=== PATIENT | female | born 1930 | race Caucasian/White ===

== ENCOUNTER 2016-12-14 09:19 | Inpatient (IN) | payer OTHER, MEDICAID ==
[~2016-12-14] VITALS: Ht 142.2 cm; Wt 48.1 kg
[~2016-12-14 09:19] MED LIST: ADV500/50 INH; BG MC; COLACE100 MG PO; DOC-Q-LACE100 MG PO; ECO81 PO; FLONS; HUMULIN R100 U/1 M1 SC; I5 PO; L20 PO; METOPROLOL SUCC25 M1 PO; MEV20 PO; MONTELUKAST SOD10 M1 PO; MOT400 PO; MYCLUD PO; NITROSTAT0.4 MG SL; NORCO1 TA2 PO; PRI20 PO; PRO40 PO; PROINH INH; PROTONIX40 MG PO; ROC1I IV; SING10 PO; SINGULAIR10 MG PO; TOP50 PO; VITAMIN-D1000 IU PO; XARELTO15 M1 PO; ZES20 PO; ZOC20 PO; ZYR5 PO; [UNRECOGNIZED DRUG - OTHER]
[2016-12-14 10:55] LABS: BASOPHIL % 0.6 % (0-2); PLATELET COUNT 189 x10^3mcL (130-400); RED CELL DISTRIBUTION WIDTH 14.8 % (11.5-14.5)
[2016-12-14 11:05] LABS: CALCIUM 8.8 mg/dL (8.5-10.1); CARBON DIOXIDE 25.5 mmol/L (21-32); CHLORIDE SERUM 103 mmol/L (98-107); GLUCOSE SERUM 97 mg/dL (74-106); POTASSIUM SERUM 4.1 mmol/L (3.5-5.1); SODIUM SERUM 140 mmol/L (136-145)
[2016-12-14 11:18] LABS: ALBUMIN 3.6 g/dL (3.4-5.0); ALKALINE PHOSPHATASE 83 U/L (46-116); ALT/SGPT 17 U/L (14-59); AST/SGOT 17 U/L (15-37); BILIRUBIN TOTAL 0.4 mg/dL (0.20-1.00); TOTAL PROTEIN, SERUM 6.7 g/dL (6.4-8.2)
[2016-12-14] MEDS ORDERED: DOK COLACE100 MG PO (11:24)
[2016-12-14] MEDS ORDERED: PROAIR RES117 MCG/Ac IH (11:24)
[2016-12-14] MEDS ORDERED: ASPIRIN325 MG PO (11:25)
[2016-12-14] MEDS ORDERED: POTASSIUM CHLO10 MEQ PO (11:25)
[2016-12-14] MEDS ORDERED: CALCIUM500 M1 PO (11:27)
[2016-12-14] MEDS ORDERED: MONTELUKAST SOD10 M1 PO (11:27)
[2016-12-14] MEDS ORDERED: LEADER MELATONIN5 MG PO (11:27)
[2016-12-14] MEDS ORDERED: FUROSEMIDE20 MG PO (11:33)
[2016-12-14] MEDS ORDERED: TYLENOL325 M1 PO (11:33)
[2016-12-14] MEDS ORDERED: GABAPENTIN100 M2 PO (11:34)
[2016-12-14 11:35] LABS: UA SPECIFIC GRAVITY 1.015 (1.005-1.035); microscopic required? YES; urine erythrocyte NEGATIVE (NEGATIVE)
[2016-12-14] MEDS ORDERED: IBUPROFEN200 M2 PO (11:40)
[2016-12-14 13:33] VITALS: BP 167/64
[2016-12-14 13:57] LABS: CHOLESTEROL/HDL RATIO 3.3; MAGNESIUM 2.6 mg/dL (1.8-2.4); PHOSPHOROUS 2.5 mg/dL (2.5-4.9)
[2016-12-14 14:04] LABS: FREE T4 1.48 ng/dL (0.76-1.46); FREE THYROXINE INDEX 3.1 ug/dL (1.4-4.5)
[2016-12-14 18:05] VITALS: BP 167/64
[2016-12-14 22:00] VITALS: BP 118/59
[2016-12-15 06:21] LABS: BASOPHIL % 0.7 % (0-2); PLATELET COUNT 163 x10^3mcL (130-400)
[2016-12-15 06:30] LABS: CALCIUM 8.2 mg/dL (8.5-10.1); CARBON DIOXIDE 24.8 mmol/L (21-32); CHLORIDE SERUM 111 mmol/L (98-107); CREATININE SERUM 0.9 mg/dL (0.6-1.0); GLUCOSE SERUM 83 mg/dL (74-106); POTASSIUM SERUM 4.4 mmol/L (3.5-5.1); SODIUM SERUM 142 mmol/L (136-145)
[2016-12-15 06:48] VITALS: BP 165/61
[2016-12-15 06:50] LABS: RED CELL DISTRIBUTION WIDTH 15.1 % (11.5-14.5)
[2016-12-15 09:47] VITALS: BP 165/63
[2016-12-15 09:48] LABS: MAGNESIUM 2.4 mg/dL (1.8-2.4); PHOSPHOROUS 3.6 mg/dL (2.5-4.9)
[2016-12-15 11:55] LABS: T3 TOTAL 0.77 ng/mL
[2016-12-15 13:51] VITALS: BP 142/65
[2016-12-15 17:13] VITALS: BP 126/45
[2016-12-15 21:41] VITALS: BP 134/53
[2016-12-16 06:17] VITALS: BP 165/52
[2016-12-16 06:37] LABS: CALCIUM 8.4 mg/dL (8.5-10.1); CARBON DIOXIDE 26.5 mmol/L (21-32); CHLORIDE SERUM 103 mmol/L (98-107); CREATININE SERUM 0.8 mg/dL (0.6-1.0); GLUCOSE SERUM 95 mg/dL (74-106); MAGNESIUM 2.4 mg/dL (1.8-2.4); PHOSPHOROUS 3.2 mg/dL (2.5-4.9); SODIUM SERUM 139 mmol/L (136-145)
[2016-12-16 06:39] LABS: BASOPHIL % 0.3 % (0-2); PLATELET COUNT 157 x10^3mcL (130-400)
[2016-12-16 06:49] LABS: RED CELL DISTRIBUTION WIDTH 15.5 % (11.5-14.5)
[2016-12-16 09:26] VITALS: BP 129/44
[2016-12-16 12:41] VITALS: BP 144/58
[2016-12-16 17:09] VITALS: BP 173/54
[2016-12-16 17:16] VITALS: BP 141/59
[2016-12-16 21:01] VITALS: BP 145/49
[2016-12-17 05:16] VITALS: BP 116/65
[2016-12-17 06:58] LABS: BASOPHIL % 0.4 % (0-2); PLATELET COUNT 156 x10^3mcL (130-400); RED CELL DISTRIBUTION WIDTH 14.9 % (11.5-14.5)
[2016-12-17 09:25] VITALS: BP 176/63
[2016-12-17 12:30] VITALS: BP 176/63
[2016-12-17 13:25] VITALS: BP 125/53
[2016-12-17] MEDS ORDERED: MOT800 PO (17:02)
[2016-12-17 17:51] VITALS: BP 144/56
[2016-12-17 18:37] VITALS: BP 144/56
== END 2016-12-17 20:45 | disposition home or self-care (01) | DRG 689 ==
LOC: ED 09:19 → DU 12:24
PROVIDERS: Emergency Medicine; ADMIT Family Medicine
DX: N39.0 Urinary tract infection, site not specified (principal); N17.0 Acute kidney failure with tubular necrosis; I50.43 Acute on chronic combined systolic (congestive) and diastolic (congestive) heart failure; D68.69 Other thrombophilia; M80.08XA Age-related osteoporosis with current pathological fracture, vertebra(e), initial encounter for fracture; I11.0 Hypertensive heart disease with heart failure; E11.59 Type 2 diabetes mellitus with other circulatory complications; E11.51 Type 2 diabetes mellitus with diabetic peripheral angiopathy without gangrene; E11.42 Type 2 diabetes mellitus with diabetic polyneuropathy; E11.65 Type 2 diabetes mellitus with hyperglycemia; E78.5 Hyperlipidemia, unspecified; K21.9 Gastro-esophageal reflux disease without esophagitis; E83.41 Hypermagnesemia; E83.51 Hypocalcemia; J45.909 Unspecified asthma, uncomplicated; Z66 Do not resuscitate; Z93.3 Colostomy status; Z79.82 Long term (current) use of aspirin; Z85.030 Personal history of malignant carcinoid tumor of large intestine
CPT/HCPCS: 36600; 82962; 83880; 84439; 97110-GP; 97116-GP; 97530-GP; J0696; J1885; J2405; J3010; J3475; J7030; J7040; J7042; Q0092

== ENCOUNTER 2017-02-08 11:35 | Inpatient (IN) | payer OTHER, MEDICAID ==
[~2017-02-08] VITALS: Ht 154.9 cm; Wt 52.2 kg
[~2017-02-08 11:35] MED LIST changes: +ASPIRIN325 MG PO; +CALCIUM500 M1 PO; +DOK COLACE100 MG PO; +FUROSEMIDE20 MG PO; +GABAPENTIN100 M2 PO; +IBUPROFEN200 M2 PO; +LEADER MELATONIN5 MG PO; +MOT800 PO; +POTASSIUM CHLO10 MEQ PO; +PROAIR RES117 MCG/Ac IH; +TYLENOL325 M1 PO
[2017-02-08 12:32] LABS: BASOPHIL % 0.6 % (0-2); PLATELET COUNT 193 x10^3mcL (130-400)
[2017-02-08 12:34] LABS: RED CELL DISTRIBUTION WIDTH 15.5 % (11.5-14.5)
[2017-02-08 12:56] LABS: ALBUMIN 3.5 g/dL (3.4-5.0); ALKALINE PHOSPHATASE 83 U/L (46-116); ALT/SGPT 19 U/L (14-59); AST/SGOT 18 U/L (15-37); BILIRUBIN TOTAL 0.3 mg/dL (0.20-1.00); CALCIUM 8.7 mg/dL (8.5-10.1); CARBON DIOXIDE 27.1 mmol/L (21-32); CHLORIDE SERUM 107 mmol/L (98-107); CREATININE SERUM 0.9 mg/dL (0.6-1.0); GLUCOSE SERUM 134 mg/dL (74-106); POTASSIUM SERUM 3.7 mmol/L (3.5-5.1); SODIUM SERUM 141 mmol/L (136-145); TOTAL PROTEIN, SERUM 6.9 g/dL (6.4-8.2)
[2017-02-08] MEDS ORDERED: VITAMIN-D1000 IU PO (14:39)
[2017-02-08] MEDS ORDERED: POTASSIUM CHLO20 ME1 PO (14:42)
[2017-02-08 14:47] LABS: MAGNESIUM 2.1 mg/dL (1.8-2.4); PHOSPHOROUS 2.2 mg/dL (2.5-4.9)
[2017-02-08 14:48] LABS: UA SPECIFIC GRAVITY 1.015 (1.005-1.035); microscopic required? YES; urine erythrocyte 1+ (NEGATIVE)
[2017-02-08 14:57] LABS: FREE T4 1.16 ng/dL (0.76-1.46); T4(THYROXINE) 7.8 ug/dL (4.7-13.3)
[2017-02-08 15:05] LABS: T3 TOTAL 0.86 ng/mL
[2017-02-08 15:34] VITALS: BP 139/61
[2017-02-08 15:39] VITALS: BP 139/61
[2017-02-08 21:59] VITALS: BP 116/45
[2017-02-09 00:47] VITALS: BP 115/45
[2017-02-09 06:21] VITALS: BP 112/52
[2017-02-09 06:47] LABS: CALCIUM 8.4 mg/dL (8.5-10.1); CHLORIDE SERUM 106 mmol/L (98-107); CREATININE SERUM 0.9 mg/dL (0.6-1.0); GLUCOSE SERUM 120 mg/dL (74-106); MAGNESIUM 2.1 mg/dL (1.8-2.4); POTASSIUM SERUM 3.8 mmol/L (3.5-5.1); SODIUM SERUM 139 mmol/L (136-145)
[2017-02-09 07:24] LABS: BASOPHIL % 0.3 % (0-2); PLATELET COUNT 171 x10^3mcL (130-400)
[2017-02-09 07:33] LABS: RED CELL DISTRIBUTION WIDTH 15.9 % (11.5-14.5)
[2017-02-09 08:48] VITALS: BP 117/47
[2017-02-09 12:31] VITALS: BP 143/65
[2017-02-09 16:15] VITALS: BP 116/55
[2017-02-09 21:23] VITALS: BP 140/53
[2017-02-10 06:39] VITALS: BP 107/60
[2017-02-10 09:31] VITALS: BP 102/40
[2017-02-10 14:02] VITALS: BP 114/45
[2017-02-10 18:54] VITALS: BP 134/53
[2017-02-10 21:48] VITALS: BP 118/51
[2017-02-11 05:49] VITALS: BP 154/62
[2017-02-11 06:36] LABS: BASOPHIL % 0.5 % (0-2); PLATELET COUNT 172 x10^3mcL (130-400)
[2017-02-11 06:38] LABS: RED CELL DISTRIBUTION WIDTH 15.8 % (11.5-14.5)
[2017-02-11 10:33] VITALS: BP 123/51
[2017-02-11 13:59] VITALS: BP 116/53
[2017-02-11 17:39] VITALS: BP 121/56
[2017-02-11 20:44] VITALS: BP 106/68
[2017-02-12 05:55] VITALS: BP 120/48
[2017-02-12 06:19] LABS: BASOPHIL % 0.1 % (0-2); PLATELET COUNT 174 x10^3mcL (130-400)
[2017-02-12 06:22] LABS: RED CELL DISTRIBUTION WIDTH 16.2 % (11.5-14.5)
[2017-02-12 09:13] VITALS: BP 124/55
[2017-02-12 13:57] VITALS: BP 129/55
[2017-02-12] MEDS ORDERED: LIPI10 PO (14:20)
[2017-02-12] MEDS ORDERED: ECO81 PO (14:22)
[2017-02-12] MEDS ORDERED: COUGH100 MG/5 M PO (14:23)
[2017-02-12 14:25] VITALS: BP 129/55
[2017-02-12] MEDS ORDERED: LAC PO (14:26)
[2017-02-12] MEDS ORDERED: LEVOFLOXACIN500 M1 PO (14:45)
[2017-02-12] MEDS ORDERED: CLINDAMYCIN HC300 MG PO (14:46)
== END 2017-02-12 17:01 | disposition home health service (06) | DRG 177 ==
LOC: ED 11:35 → DU 13:38
PROVIDERS: Emergency Medicine; ADMIT Family Medicine
DX: J69.0 Pneumonitis due to inhalation of food and vomit (principal); J96.00 Acute respiratory failure, unspecified whether with hypoxia or hypercapnia; N17.0 Acute kidney failure with tubular necrosis; E43 Unspecified severe protein-calorie malnutrition; N39.0 Urinary tract infection, site not specified; D68.69 Other thrombophilia; E86.0 Dehydration; E11.65 Type 2 diabetes mellitus with hyperglycemia; E11.59 Type 2 diabetes mellitus with other circulatory complications; K21.9 Gastro-esophageal reflux disease without esophagitis; E83.39 Other disorders of phosphorus metabolism; D64.9 Anemia, unspecified; Z85.038 Personal history of other malignant neoplasm of large intestine; J84.10 Pulmonary fibrosis, unspecified; Z99.81 Dependence on supplemental oxygen; Z93.3 Colostomy status; Z66 Do not resuscitate
CPT/HCPCS: 82962; 83880; 84439; 92610; 97116-GP; 97530-GP; J0696; J1956; J2405; J2920; J3490; J7030; J7613; J7626; J7644; Q0092

== ENCOUNTER 2018-02-17 22:11 | Inpatient (IN) | payer OTHER ==
[~2018-02-17] VITALS: Ht 149.9 cm; Wt 48.0 kg
[~2018-02-17 22:11] MED LIST changes: +CLINDAMYCIN HC300 MG PO; +COUGH100 MG/5 M PO; +LAC PO; +LEVOFLOXACIN500 M1 PO; +LIPI10 PO; +POTASSIUM CHLO20 ME1 PO
[2018-02-17 22:20] VITALS: Ht 149.9 cm; Wt 48.0 kg
[2018-02-18] VITALS (7 sets, daily range): BP systolic 101–206; BP diastolic 45–70
[2018-02-18] MEDS ORDERED: TRAMADOL HCL50 MG PO (00:24)
[2018-02-18] MEDS ORDERED: SIMVASTATIN20 M1 PO (00:24)
[2018-02-18] MEDS ORDERED: BENAZEPRIL HYDR20 M1 PO (00:26)
[2018-02-18] MEDS ORDERED: NATURE'S BLEND500 M3 PO (00:27)
[2018-02-18] MEDS ORDERED: COLACE100 MG PO (00:27)
[2018-02-18] MEDS ORDERED: VITAMIN-D1000 IU PO (00:28)
[2018-02-18] MEDS ORDERED: PANTOPRAZOLE SO40 M1 PO (00:29)
[2018-02-18 02:34] LABS: UA SPECIFIC GRAVITY <=1.005 (1.005-1.035); microscopic required? YES; urine erythrocyte TRACE (NEGATIVE)
[2018-02-18 06:33] LABS: ALBUMIN 3.5 g/dL (3.4-5.0); ALKALINE PHOSPHATASE 83 U/L (46-116); ALT/SGPT 20 U/L (14-59); AST/SGOT 21 U/L (15-37); BILIRUBIN TOTAL 0.5 mg/dL (0.20-1.00); CALCIUM 9.3 mg/dL (8.5-10.1); CARBON DIOXIDE 26.2 mmol/L (21-32); CHLORIDE SERUM 107 mmol/L (98-107); CREATININE SERUM 0.9 mg/dL (0.6-1.0); GLUCOSE SERUM 119 mg/dL (74-106); SODIUM SERUM 141 mmol/L (136-145); TOTAL PROTEIN, SERUM 6.9 g/dL (6.4-8.2)
[2018-02-18 06:50] LABS: BASOPHIL % 0.5 % (0-2); PLATELET COUNT 202 x10^3mcL (130-400)
[2018-02-19 05:23] VITALS: BP 126/50
[2018-02-19 10:54] VITALS: BP 114/51
[2018-02-19 17:00] VITALS: BP 139/57
[2018-02-19 21:15] VITALS: BP 146/54
[2018-02-20 06:04] VITALS: BP 100/58
[2018-02-20 08:47] VITALS: BP 114/49
[2018-02-20 15:25] VITALS: BP 114/49
[2018-02-20 18:28] VITALS: BP 116/58
[2018-02-20 20:58] VITALS: BP 128/51
[2018-02-21 05:10] VITALS: BP 96/61
[2018-02-21 08:26] VITALS: BP 106/43
[2018-02-21 08:37] VITALS: BP 106/43
[2018-02-21 13:39] VITALS: BP 114/49
[2018-02-21 17:20] VITALS: BP 101/55
== END 2018-02-21 20:20 | disposition home health service (06) | DRG 536 ==
LOC: ED 22:11 → MU 02-18 00:16
PROVIDERS: Internal Medicine
DX: S32.511A Fracture of superior rim of right pubis, initial encounter for closed fracture (principal); S09.90XA Unspecified injury of head, initial encounter; R42 Dizziness and giddiness; I10 Essential (primary) hypertension; E78.5 Hyperlipidemia, unspecified; R73.03 Prediabetes; J84.10 Pulmonary fibrosis, unspecified; J45.909 Unspecified asthma, uncomplicated; Z91.81 History of falling; Z93.3 Colostomy status; W18.39XA Other fall on same level, initial encounter; Y93.89 Activity, other specified; Y92.018 Other place in single-family (private) house as the place of occurrence of the external cause; Z86.718 Personal history of other venous thrombosis and embolism
CPT/HCPCS: 82962; 97116-GP; 97530-GP; J0360; J1885; J3535; Q0092; Q0162

== ENCOUNTER 2018-06-21 15:11 | Observation (INO) | payer OTHER ==
[~2018-06-21] VITALS: Ht 127 cm; Wt 49.5 kg
[~2018-06-21 15:11] MED LIST changes: +BENAZEPRIL HYDR20 M1 PO; +NATURE'S BLEND500 M3 PO; +PANTOPRAZOLE SO40 M1 PO; +SIMVASTATIN20 M1 PO; +TRAMADOL HCL50 MG PO
[2018-06-21 15:48] VITALS: Ht 127 cm; Wt 49.5 kg
[2018-06-21] MEDS ORDERED: SENNA8.6 M2 (16:47)
[2018-06-21] MEDS ORDERED: NORCO1 TA2 PO (16:49)
[2018-06-21] MEDS ORDERED: ASPIRIN325 MG PO (16:49)
[2018-06-21 16:53] LABS: BASOPHIL % 0.8 % (0-2); PLATELET COUNT 202 x10^3mcL (130-400)
[2018-06-21 16:54] LABS: RED CELL DISTRIBUTION WIDTH 15.3 % (11.5-14.5)
[2018-06-21] MEDS ORDERED: CALCIUM500 M1 PO (16:57)
[2018-06-21] MEDS ORDERED: VITAMIN A8000 UNIT PO (16:57)
[2018-06-21 17:01] LABS: CALCIUM 9.2 mg/dL (8.5-10.1); CARBON DIOXIDE 26.6 mmol/L (21-32); CHLORIDE SERUM 105 mmol/L (98-107); CREATININE SERUM 0.9 mg/dL (0.6-1.0); GLUCOSE SERUM 132 mg/dL (74-106); POTASSIUM SERUM 4.1 mmol/L (3.5-5.1); SODIUM SERUM 139 mmol/L (136-145)
[2018-06-21 17:06] LABS: ALKALINE PHOSPHATASE 84 U/L (46-116); ALT/SGPT 13 U/L (14-59); AST/SGOT 14 U/L (15-37); BILIRUBIN TOTAL 0.2 mg/dL (0.20-1.00); TOTAL PROTEIN, SERUM 6.5 g/dL (6.4-8.2)
[2018-06-21 17:08] LABS: ALBUMIN 3.2 g/dL (3.4-5.0)
[2018-06-21 17:32] LABS: UA SPECIFIC GRAVITY <=1.005 (1.005-1.035); microscopic required? YES; urine erythrocyte TRACE (NEGATIVE)
[2018-06-21 20:48] VITALS: BP 180/56
[2018-06-22 05:52] VITALS: BP 126/43
[2018-06-22 07:30] LABS: BASOPHIL % 1.3 % (0-2); PLATELET COUNT 191 x10^3mcL (130-400)
[2018-06-22 07:31] LABS: RED CELL DISTRIBUTION WIDTH 15.1 % (11.5-14.5)
[2018-06-22 07:44] LABS: ALKALINE PHOSPHATASE 76 U/L (46-116); ALT/SGPT 10 U/L (14-59); AST/SGOT 12 U/L (15-37); BILIRUBIN TOTAL 0.2 mg/dL (0.20-1.00); CALCIUM 9.1 mg/dL (8.5-10.1); CARBON DIOXIDE 30.5 mmol/L (21-32); CHLORIDE SERUM 109 mmol/L (98-107); GLUCOSE SERUM 91 mg/dL (74-106); MAGNESIUM 1.9 mg/dL (1.8-2.4); POTASSIUM SERUM 4.6 mmol/L (3.5-5.1); SODIUM SERUM 139 mmol/L (136-145)
[2018-06-22 07:45] LABS: ALBUMIN 2.8 g/dL (3.4-5.0); TOTAL PROTEIN, SERUM 5.9 g/dL (6.4-8.2)
[2018-06-22 09:00] VITALS: BP 101/36
[2018-06-22 17:00] VITALS: BP 148/61
[2018-06-22 20:36] VITALS: BP 122/50
[2018-06-23] VITALS (7 sets, daily range): BP systolic 90–174; BP diastolic 39–77
[2018-06-23] MEDS ORDERED: SOMA350 MG PO (08:36)
== END 2018-06-23 18:40 | disposition home or self-care (01) | DRG 552 ==
LOC: ED 15:11 → MU 18:40
PROVIDERS: Emergency Medicine; Internal Medicine Pulmonary Disease; ADMIT Internal Medicine Pulmonary Disease
DX: M47.896 Other spondylosis, lumbar region (principal); I10 Essential (primary) hypertension; M48.55XD Collapsed vertebra, not elsewhere classified, thoracolumbar region, subsequent encounter for fracture with routine healing; M81.0 Age-related osteoporosis without current pathological fracture; S32.9XXD Fracture of unspecified parts of lumbosacral spine and pelvis, subsequent encounter for fracture with routine healing; J45.909 Unspecified asthma, uncomplicated; K21.9 Gastro-esophageal reflux disease without esophagitis; E78.5 Hyperlipidemia, unspecified; Z93.3 Colostomy status; Z86.718 Personal history of other venous thrombosis and embolism; X58.XXXD Exposure to other specified factors, subsequent encounter
CPT/HCPCS: 97110-GP; G0378; J1644; J1885; J2405; J3010; J7040; J7620; J7633

== ENCOUNTER 2018-08-30 17:58 | Observation (INO) | payer OTHER | END 2018-09-04 16:35 | disposition home or self-care (01) | LOC: ED 17:58 → DU 08-31 00:05 → ED 17:58 → DU 08-31 00:05 → ED 17:58 → DU 08-31 00:05 → ED 17:58 → DU 08-31 00:05 → ED 17:58 → DU 08-31 00:05 ==

== ENCOUNTER 2018-09-13 12:37 | Inpatient (IN) | payer OTHER ==
[~2018-09-13] VITALS: Ht 147.3 cm; Wt 47.3 kg
[~2018-09-13 12:37] MED LIST changes: -GABAPENTIN100 M2 PO; +MULTI-VITAMINS1 TAB PO; +SENNA8.6 M2; +SOMA350 MG PO; +TYL500 PO; +VITAMIN A8000 UNIT PO
[2018-09-13 12:42] VITALS: Ht 147.3 cm; Wt 47.3 kg
--- NOTE | 2018-09-13 13:20 | NUR ---
PT MEDICATED PER MD ORDERS SEE EMAR
[2018-09-13 13:32] LABS: CALCIUM 8.8 mg/dL (8.5-10.1); CARBON DIOXIDE 28.5 mmol/L (21-32); CHLORIDE SERUM 107 mmol/L (98-107); CREATININE SERUM 0.9 mg/dL (0.6-1.0); GLUCOSE SERUM 130 mg/dL (74-106); POTASSIUM SERUM 3.8 mmol/L (3.5-5.1); SODIUM SERUM 141 mmol/L (136-145)
--- NOTE | 2018-09-13 13:33 | NUR ---
BREATHING TX IN PROGRES
[2018-09-13 13:37] LABS: ALKALINE PHOSPHATASE 85 U/L (46-116); ALT/SGPT 21 U/L (14-59); AST/SGOT 21 U/L (15-37); BILIRUBIN TOTAL 0.28 mg/dL (0.20-1.00); TOTAL PROTEIN, SERUM 6.6 g/dL (6.4-8.2)
[2018-09-13 13:38] LABS: ALBUMIN 3.3 g/dL (3.4-5.0)
[2018-09-13 13:39] LABS: BASOPHIL % 0.4 % (0-2); PLATELET COUNT 263 x10^3mcL (130-400)
[2018-09-13 13:48] LABS: RED CELL DISTRIBUTION WIDTH 16.8 % (11.5-14.5)
--- NOTE | 2018-09-13 15:08 | NUR ---
PT SLEEPING NO DISTRESS VSS. FAMILY AT BEDSIDE IV ESTABLISHED ROCEPHIN IV INFUSION INFUSING WITH NO PROBLEM ORDERED BY ER MD SEE EMAR. WILL MONITOR. CALL LIGHT IN REACH.
[2018-09-13 15:55] VITALS: BP 145/73
--- NOTE | 2018-09-13 16:29 | NUR ---
REPORT GIVEN TO TEZ MONTENEGRO.
--- NOTE | 2018-09-13 16:53 | NUR ---
PT TRANSPORTED TO MED SURG FLOOR VIA [facility] NO DISTRESS VSS IV SITE PATENT. [facility] EMT TRANSPORTED. TEZ MONTENEGRO RESUMING CARE OF PT IN MED SURG FLOOR
[2018-09-13 17:11] VITALS: BP 137/54
--- NOTE | 2018-09-13 17:12 | NUR ---
AT 1700 - RECEIVED PATIENT FROM ER NURSE. SETTLED IN BED AND ORIENTED TO SURROUNDINGS. ALSO PLACED ON AIR MATTRESS. ADMITTED WITH PERSISTANT COUGH. PATIENT'S DAUGHTER AT BEDSIDE. HX AND ADMISSION ASSESMENT DONE BY RESOURCE NURSE.
--- NOTE | 2018-09-13 18:04 | NUR ---
RECEVIED PT FROM ER. PT ADMIT FOR PNA, HYPOXIA, PT IS A/O X2, MILD CONFUSED, BUT FOLLOW COMMAND. LUNG SOUND WHEEZING MARNI, PT IS ON 2L/MIN O2 VIA NC. PO2 93%, DENY ANY CHEST PAIN OR DISCOMFORT, COLOSTOMY BAG AT LEFT SIDE, AND ABD IS DISTENTED AT LEFT SIDE OSTOMY AREA. PER DAUGHTER, PT HAS HERNIA AT OSTOMY AREA. PEDAL PULSE PRESENT BOTH FEET, NO EDMEA, IV AT RIGHT AC, NO LEAKING, NO INFITLRATION. LEFT ARM IS LIMITED ROM, ALL ADLS ASSIST, ALL NEED MET, CALL LIGHT IN REACH, WILL CONTINUE TO MONITOR.
--- NOTE | 2018-09-13 19:27 | NUR ---
PATIENT RESTING COMFORTABLE. HAS BEEN SEEN BY RT. RESPIRATIONS REGULAR. HAS NON-PRODUCTIVE COUGH. HAS EATEN SMALL AMOUNT OF FOOD AT DINNER. FAMILY MEMBER REMAINS AT BEDSIDE. CARE ENDORSED TO NIGHT NURSE.
--- NOTE | 2018-09-13 20:08 | NUR ---
RECIEVED PT FROM PREVIOUS NURSE. PT RESTING IN BED. FAMILY MEMBER AT BEDSIDE. A/O X4. ABLE TO VERBALIZE NEEDS. BREATHING LAABORED WITH WHEEZING BILAT. PT COMPLAINT OF SOB. SAT ASSESSED AT 95%. HOB ELEVATED, INCREASED OXYGEN TO 3L VIA NC. RT CALLED. IV AT RIGHT AC INTACT. COLOSTOMY BAG AT LEFT SIDE. ABD DISTENDED AT LEFT SIDE. PULSES PALABLE NO EDEMA NOTED. PT DENIES PAIN AT THIS TIME. BED IN LOW POSITION. CALL LIGHT WITHIN REACH. WILL CONTINUE TO MONITOR.
[2018-09-13 20:29] VITALS: BP 136/64
--- NOTE | 2018-09-13 20:59 | NUR ---
PT COMPLAINT OF 5/10 HEADACHE. TYLENOL PO GIVEN PER EMAR. WILL CONTINUE TO MONITOR.
--- NOTE | 2018-09-14 00:39 | NUR ---
PT RESTING IN BED RECIEVING BREATHING TREATMENT. FAMILY MEMBER AT BED SIDE. PT HAS NO COMPLAINTS AT THIS TIME. BED IN LOW POSITION. CALL LIGHT WITHIN REACH. WILL CONTINUE TO MONITOR.
[2018-09-14 06:14] VITALS: BP 130/57
--- NOTE | 2018-09-14 06:17 | NUR ---
PT RESTING IN BED, SITTING UP. FAMILY MEMBER AT BED SIDE. NC IN PLACE. PT ASKED FOR BREATHING TREATMENT. RT CALLED TO BED SIDE. BREATHING TREATMENT GIVEN. IV INTACT. BED IN LOW POSITION. CALLL LIGHT WITHIN REACH. WILL ENDORSE CARE TO ON COMING SHIFT.
--- NOTE | 2018-09-14 06:20 | NUR ---
PT COMPLAINT OF COUGH. CALLED. AWAITING CALL BACK AT THIS TIME. WILL ENDORSE TO ON COMING NURSE.
[2018-09-14 07:35] LABS: BASOPHIL % 0.3 % (0-2); PLATELET COUNT 247 x10^3mcL (130-400)
[2018-09-14 07:40] LABS: RED CELL DISTRIBUTION WIDTH 16.4 % (11.5-14.5)
[2018-09-14 07:45] LABS: ALKALINE PHOSPHATASE 82 U/L (46-116); ALT/SGPT 16 U/L (14-59); AST/SGOT 18 U/L (15-37); BILIRUBIN TOTAL 0.3 mg/dL (0.20-1.00); CALCIUM 8.8 mg/dL (8.5-10.1); CARBON DIOXIDE 26.5 mmol/L (21-32); CHLORIDE SERUM 107 mmol/L (98-107); CREATININE SERUM 0.7 mg/dL (0.6-1.0); GLUCOSE SERUM 170 mg/dL (74-106); MAGNESIUM 2.3 mg/dL (1.8-2.4); POTASSIUM SERUM 3.7 mmol/L (3.5-5.1); SODIUM SERUM 144 mmol/L (136-145); TOTAL PROTEIN, SERUM 6.6 g/dL (6.4-8.2)
--- NOTE | 2018-09-14 07:55 | NUR ---
AT 0730 - RECEIVED PATIENT FROM NIGHT NURSE. PATIENT AWAKE, ALERT. APPEARS ORIENTED. FAMILY MEMBER AT BEDSIDE. RESPIRATIONS REGULAR. MARNI WHEEZE. ON O2 VIA NC AT 2L. IV SALINE LOCKED. NOTED SOME DISTENTION OF ABDOMEN AND ACCORDING TO FAMILY, HERNIA AROUND COLOSTOMY. NO STOOL IN COLOSTOMY BAG ON LEFT ABDOMEN. PATIENT TAKING PO FLUIDS.
--- NOTE | 2018-09-14 08:56 | NUR ---
SEEN BY DR GARCIA. PATIENT IS NOT TO HAVE COUGH MEDICINE REQUESTED BY PATIENT AND FAMILY BECAUSE SHE HAS PNEUMONIA. PLAN IS TO DISCHARGE PATIENT HOME OR SNF IF PATIENT AND FAMILY PREFER. THIS INFORMATION WAS RELAYED TO PATIENT AND FAMILY VIA INGOT BUGGY OPERATOR. THEY WOULD LIKE PATIENT TO GO HOME.
--- NOTE | 2018-09-14 09:16 | NUR ---
RECEIVED DISCHARGE ORDERS.
[2018-09-14 09:19] VITALS: BP 139/73
[2018-09-14 09:42] VITALS: BP 139/73
--- NOTE | 2018-09-14 11:03 | NUR ---
PATIENT'S FAMILY WAS DISPUTING DISCHARGE. CALLED DR GARCIA AND RECEIVED ORDER FOR PATIENT TO STAY IN HOSPITAL TODAY AND CONTINUE WITH ORDERS. REPEAT CBC AND BMP IN AM. CANCELL DISCHARGE. PATIENT SAT OUT OF BED IN CHAIR PER PATIENT AND FAMILY REQUEST. MADE COMFORTABLE.
--- NOTE | 2018-09-14 12:06 | NUR ---
PATIENT REMAINS SITTING IN CHAIR. RESPIRATIONS REGULAR. ON O2 VIA NC AT 2L. SPOT CHECK OF O2 SAT = 94-99%. FAMILY WITH PATIENT.
--- NOTE | 2018-09-14 13:26 | NUR ---
PATIENT HAS HAD SOME LUNCH. STIL SITTING IN CHAIR AND APPEARS COMFORTABLE. FAMILY ATTENTIVE TO PATIENT NEEDS.
--- NOTE | 2018-09-14 14:44 | NUR ---
PATIENT RETURNED TO BED AND POSITIONED FOR COMFORT WITH PILLOW SUPPORT. NOTED DYSPNEA ON EXERTION. IV ROCEPHIN NOW IN PROGRESS. RECEIVING BREATHING TREATMENT.
[2018-09-14 16:25] VITALS: BP 144/76
--- NOTE | 2018-09-14 17:38 | NUR ---
AT 1630 - PATIENT AGAIN SAT OUT OF BED IN [facility]. FAMILY EXPRESSED CONCERN THAT PATIENT'S BREATHING HAS NOT IMPROVED AND THEY'RE REQUESTING COUGH MEDICINE. SPOKE WITH FAMILY USING ANGOLAN TELEPHONE SUPPORT DBA. AT 1640 - SPOKE WITH DR GARCIA PER PHONE. RECEIVED ORDERS FOR: MUSINEX 600 MG PO BID LASIX 40MG IV X 1 AT 1650 - SPOKE WITH PATIENT'S FAMILY USING ANGOLAN TELEPHONE SUPPORT DBA ID # [id number], TO EXPLAIN NEW PLAN OF CARE. AT 1725 - PATIENT MEDICATED WITH PO MUSINEX AND IV LASIX PER EMAR. FAMILY AT BEDSIDE.
--- NOTE | 2018-09-14 18:39 | NUR ---
PATIENT REMAINS SITTING IN CHAIR. APPEARS COMFORTABLE. RESPIRATIONS REGULAR. VSS AND WNL. AFEBRILE. IV SALINE LOCKED. INCONTINENT OF URINE. HAS EATEN SMALL AMOUNT OF FOOD FROM DINNER TRAY. TAKING PO FLUIDS. FAMILY AT BEDSIDE AND ATTENTIVE TO PATIENT NEEDS. WILL ENDORSE CARE TO NIGHT NURSE.
--- NOTE | 2018-09-14 19:30 | NUR ---
PT IS A/O X4. ON MED SURG. DENIES ANY CHEST PAIN OR PRESSURE. PULSES ARE PRESENT. NO EDEMA NOTED. LUNGS CLEAR BUT SLIGHT DIMINISHED AT BASES. ON 2L NC. EQUAL CHEST RISE AND FALL. NO SIGN OF RESP DISTRESS. SOB WITH ACTIVITY. BOWEL SOUNDS PRESENT. L SIDE COLOSOMY BAG, LARGE HERNIA NOTED WITH STOMA IN THE CENTER. STOMA PINK AND SWOLLEN. NO DRAINGE OR GAS NOTED IN BAG. SKIN WARM AND INTACT. ON AN AIR MATTRESS. DENIES ANY PAIN AT THIS TIME. SALINE LOCKED ON RAC. SITE CLEAN AND INTACT. FAMILY AT BEDSIDE. BED IS AT LOWEST SETTING. CALL LIGHT WITHIN REACH. WILL CONTINUE TO MONTIOR.
[2018-09-14 21:29] VITALS: BP 129/57
--- NOTE | 2018-09-14 23:22 | NUR ---
PT IS C/O SOB. RT WAS CALLED FOR TREATMENT. SPO2 ON 3L NC IS 95%. TACHYPNEA NOTED. WILL CONTINUE TO MONTIOR.
--- NOTE | 2018-09-14 23:37 | NUR ---
PT IS STILL C/O OF SOB. TACHYCARDIC HR 120S AND TACHYPNIC RR IN 30S. MD GARCIA WAS PAGED.
--- NOTE | 2018-09-14 23:40 | NUR ---
MD GARCIA RETURNED CALLED AND ORDER BIPAP. RT WAS NOTIFIED AND ORDERS WILL BE CARRIED OUT.
--- NOTE | 2018-09-14 23:47 | NUR ---
RT ON BEDSIDE TO PLACE PT ON BIPAP. EDUCATION PROVIDED.
--- NOTE | 2018-09-15 00:40 | NUR ---
RT CALLED PT DOES NOT WANT THE BIPAP ANYMORE. LASIX ONE TIME DOSE GIVEN PER EMAR. B/P IN HIGH 140S, AND HR LOW 100S. WILL CONTIUE TO MONITOR.
--- NOTE | 2018-09-15 00:45 | NUR ---
CALLED BY RN TO Pt'S ROOM, Pt REQUESTS TO COME OFF OF THE BIPAP; CANNOT TOLERATE IT ANYMORE. PLACED ON 3L N/C. SPO2 93%, WILL MONITOR.
--- NOTE | 2018-09-15 02:29 | NUR ---
PT UNABLE TO SLEEP. GAVE PRN AMBIEN PER EMAR. PT VOIDED IN BED. CARE AND NEW LINEN PROVIDED. DAUGHTER AT BEDSIDE. ON 3L NC. DENIES ANY SOB. EQUAL CHEST RISE AND FALL. BED IS AT LOWEST SETTING. CALL LIGHT WITHIN REACH. WILL CONTINUE TO MONITOR.
--- NOTE | 2018-09-15 05:13 | NUR ---
Pt PLACED BACK ON BIPAP /, BUR 12, FIO2 35% AT THIS TIME DUE TO INCREASED WOB AND TACHYPNEA. ATIVAN GIVEN PRIOR BY RN. SPO2 93%. WILL MONITOR.
--- NOTE | 2018-09-15 05:22 | NUR ---
PT WAS HYPERVENTILATING AND HR 130S. PT WAS APPEARING ANXIOUS. PRN ATIVAN WAS GIVEN AND RT WAS CALLED TO PLACE PT ON BIPAP. PT IS NOW CALM IN BED. BREATHING EVEN AND UNLABORED. DAUGHTER PRESENT AT BEDSIDE.
[2018-09-15 05:58] VITALS: BP 137/86
--- NOTE | 2018-09-15 06:52 | NUR ---
PT PULLED OFF BIPAP. PT UNABLE TO TOLERATE NC. PLACED ON 6L SIMPLE MASK. RT WAS CALLED.
[2018-09-15 07:15] LABS: CALCIUM 8.8 mg/dL (8.5-10.1); CARBON DIOXIDE 30.3 mmol/L (21-32); CHLORIDE SERUM 103 mmol/L (98-107); CREATININE SERUM 0.9 mg/dL (0.6-1.0); GLUCOSE SERUM 170 mg/dL (74-106); POTASSIUM SERUM 3.5 mmol/L (3.5-5.1); SODIUM SERUM 141 mmol/L (136-145)
--- NOTE | 2018-09-15 07:15 | NUR ---
PT HAS LABORED BREATHING. RT CALLED. CHARGE AT BEDSIDE. PT PLACED BACK ON BIPAP AND RECIEVED BREATHING TREATMENT. MD GARCIA WAS CALLED.
--- NOTE | 2018-09-15 07:22 | NUR ---
[facility] ORDERED STAT PER MD GARCIA. RT WAS CALLED FOR STAT ORDERS. PT WAS ALSO TRANSFERED TO TELE. ON TELE #25, ST HR 118. WILL ENDORSE TO AM NURSE.
--- NOTE | 2018-09-15 07:30 | NUR ---
RECEIVED PT RESTING IN BED. PT TACHYPNEIC, PLACED ON BIPAP BY RT AND GETTING ABG'S DONE AT THIS TIME. ST ON TELE #25. ON AIR MATTRESS. IV TO RAC, NO REDNESS OR SWELLING NOTED. COLOSTOMY TO L SIDE OF ABDOMEN, SURROUNDING AREA BULGING OUT. FAMILY MEMBER AT BEDSIDE. BED IN LOW POSITION, CALL LIGHT WITHIN REACH. HOB ELEVATED. WILL CONTINUE TO MONITOR.
[2018-09-15 08:30] LABS: PLATELET COUNT 239 x10^3mcL (130-400); RED CELL DISTRIBUTION WIDTH 16.4 % (11.5-14.5)
[2018-09-15 08:31] LABS: SEGMENTED NEUTROPHILS 88 % (37-75)
[2018-09-15 08:32] LABS: ATYPICAL LYMPH 1 %; BAND NEUTROPHIL 2 % (0-10); BASOPHIL 0 % (0-2); MONOCYTE 3 % (0-7); rbc morphology (normal/abnorm) ABNORMAL (NORMAL)
--- NOTE | 2018-09-15 10:17 | NUR ---
PT STILL TACHYPNEIC, RESPIRATIONS IN THE 30'S. ATTEMPTING TO REMOVED BIPAP OFF REPEATEDLY. FAMILY REQUESTING TO HAVE PT OFF BIPAP FOR A FEW MINUTES TO SEE HOW PT DOES. RT AWARE AND AT BEDSIDE AT THIS TIME. WILL CONTINUE TO MONITOR.
--- NOTE | 2018-09-15 10:19 | NUR ---
PT PLACED ON SIMPLE MASK AT 6 LPM BY DONNELL JUAREZ. O2 SAT 98%, HR 112. WILL CONTINUE TO MONITOR.
--- NOTE | 2018-09-15 11:33 | NUR ---
SWELLING NOTED TO RAC IV, DC'D WITH CATHETER INTACT. NEW IV STARTED ON R HAND, 22G, FLUSHED WITH 10 ML NS AND WITH GOOD BLOOD RETURN.
--- NOTE | 2018-09-15 11:39 | NUR ---
PT VERY TACHYPNEIC AND USING ACCESSORY MUSCLES. HR 117 ON TELE MONITOR. DONNELL JUAREZ CALLED AND PLACED PT BACK ON BIPAP. PT'S FAMILY MEMBER REQUESTING FOR PT TO BE TRANSFERRED OUT. SPOKE WITH DR. GARCIA OVER THE PHONE REGARDING PT'S CONDITION AND FAMILY MEMBER'S REQUEST. PER DR. GARCIA HE WILL COME AND TALK TO PT AND FAMILY. WILL CONTINUE TO MONITOR.
--- NOTE | 2018-09-15 11:44 | NUR ---
DR. GARCIA AT BEDSIDE TALKING TO PT AND FAMILY
--- NOTE | 2018-09-15 12:12 | NUR ---
RECEIVED ORDERS TO TRANSFER TO ICU. SPOKE WITH CUSTOMER LOGISTICS MANAGER TESSY WHO STATED ON-CALL ICU NURSE WILL COME IN AT 1300. ALSO SPOKE WITH ICU SUPERVISOR PAINTING DEPARTMENT BETTY, PT WILL BE GOING TO ICU BED 3. DR. GARCIA AWARE OF PT NOT BEING TRANSFERRED UNTIL 1300, AGREEABLE WITH PLAN. FAMILY ALSO MADE AWARE AND AGREEABLE WITH PLAN. WILL CONTINUE TO MONITOR.
[2018-09-15 12:36] VITALS: BP 149/73
--- NOTE | 2018-09-15 13:20 | NUR ---
REPORT GIVEN TO BETTY MONTENEGRO.
--- NOTE | 2018-09-15 13:23 | NUR ---
PT TRANSFERRED TO ICU BED 3 WITH NO ACUTE INCIDENTS. FAMILY IN WAITING ROOM.
--- NOTE | 2018-09-15 13:25 | NUR ---
PT ARRIVED ON HOSPITAL BED ACCOMPANIED BY NURSES AND NETWORK SYSTEMS ADMINISTRATOR. AOX1, [place]NA SPEAKING. SPEECH IS CLEAR BUT DISORIENTED. FOLLOWS COMMANDS, PERRL. PT IS BREATHING LABORED W/ SHALLOW BREATHING ON 8 L SIMPLE MASK. BARREL CHEST NOTED. FINE CRACKLES BILATERALLY. S1 S2 (-) M/G/R. DENIES CP. ABD IS SOFT AND ROUNDED. BULGE NOTED TO L ABD. LUQ COLOSTOMY NOTED, CDI. BOWEL SOUNDS HYPOACTIVE X4Q. INCONTINENCE OF URINE NOTED W/ PADS SOAKED WITH URINE ON TRANSFER. SKIN INTACT. DENIES PAIN. PUT ON FULL MONITOR, HOB ELEVATED, BED LOW, SIDE RAILS UP X2, CALL LIGHT IN REACH.
--- NOTE | 2018-09-15 14:45 | NUR ---
PRECEDEX INFUSING AT STARTING DOSE OF 0.2 MCG/KG/HR. WILL CONTINUE TO MONITOR.
--- NOTE | 2018-09-15 14:46 | NUR ---
RECEIVED PT LETHARGIC, ORIENTED X 1 PER FAMILY. PATIENT BREATHING IS LABORED, SHALLOW WITH WHEEZES AUSCULTATED TO BUL, DIMINISHED BLL. PT HR 110 AND SHOWING NST. PATIENT HAS COLOSTOMY BAG NOTED, MINIMAL OUTPUT. CAP REFILL IMMEDIATE. TRACE EDEMA NOTED TO BLE. ALL PULSES PALPABLE AND WEAK. PT HAS RH 22G INFUSING ROCEPHIN AND PRECEDEX. PATIENT ON CARBON BLOCKS PRESS OPERATOR. EDUCATION PROVIDED TO FAMILY REGARDING NEED OF BIPAP, FAMILY VERBALIZES UNDERSTANDING. WILL CONTINUE TO MONITOR PT.
[2018-09-15 14:50] VITALS: BP 104/51
--- NOTE | 2018-09-15 15:15 | NUR ---
PT BREATHING REMAINS LABORED, HR IMPROVIDED 100, MAP 70. TITRATE PRECEDEX TO 0.3 MCG/KG/HR.
--- NOTE | 2018-09-15 15:41 | NUR ---
MAP 65, PT BREATHING STILL LABORED BUT IMPROVIDED, HR 95. TITRATE PRECEDEX TO 0.2 MCG/KG/HR.
--- NOTE | 2018-09-15 15:44 | NUR ---
GLUCOSE 173.
--- NOTE | 2018-09-15 17:17 | NUR ---
COLOSTOMY BAG EMPTIED, MINIMAL BROWN LIQUID STOOL AND FLATUS RELEASED. PT CLEANSED. PT URINATED PALE YELLOW URINE, PT CLEANSED AND PROVIDED NEW LINEN.
--- NOTE | 2018-09-15 17:47 | NUR ---
FAMILY CONCERNED ABOUT PATIENT BEING SLEEPY, EDUCATED PT FAMILY MEMBERS REGARDING PT GETTING CONTINUOUS SEDATIVE. FAMILY VERBALIZES UNDERSTANDING BUT CONTINUES TO NEED TO BE REINFORCED.
--- NOTE | 2018-09-15 18:48 | NUR ---
PT URINATED. PT CLEANSED AND PROVIDED NEW LINEN.
--- NOTE | 2018-09-15 19:00 | NUR ---
RECEIVED REPORT FROM JOSIAS MONTENEGRO. ALL QUESTIONS ADDRESSED AND ANSWERED. WILL RESUME CARE.
--- NOTE | 2018-09-15 19:00 | NUR ---
RECEIVED PT LETHARGIC, ORIENTED X1. ABLE TO FOLLOW COMMANDS. RESPONDS TO VERBAL, TACTILE, AND PAINFUL STIMULUS. PUPILS BRISK IN RESPONSE TO LIGHT B/E. BREATHING IS LABORED AND SHALLOW. SYMMETRICAL CHEST WALL EXPANSION NOTED. INSPIRATORY WHEEZES AUSCULTATED TO BUL AND DIMINISHED TO BLL. ON SIMPLE MASK @ 6LPM. NO SIGNS OF DISTRESS NOTED. S1S2 HEART SOUNDS AUDIBLE. DENIES CP AT THIS TIME. SKIN IS WARM AND DRY, CONSISTENT WITH ETHNICITY. WEAK PULSES TO BUE AND BLE. CAP REFILL <3 SEC TO BUE AND BLE. TRACE EDEMA NOTED TO BLE. SKIN INTACT. ECCHYMOSIS TO L HAND NOTED. NO OPEN WOUNDS NOTED. PIV TO R HAND INTACT, PORT PATENT, DRESSING CDI. NS INFUSING @ 5ML/HR AND PRECEDEX INFUSING @ 0.2 MCG/KG/HR. X3 SIDE RAILS UP, CALL LIGHT WITHIN REACH, BED IN LOWEST POSITION. FAMILY AT BEDSIDE AND POC DISCUSSED AND UPDATED.
[2018-09-15 19:38] VITALS: BP 125/68
[2018-09-15 23:00] VITALS: BP 136/70
[2018-09-16] VITALS (7 sets, daily range): BP systolic 102–138; BP diastolic 56–74
--- NOTE | 2018-09-16 00:30 | NUR ---
FAMILY CONCERNED ABOUT PRECEDEX MEDICATION AND WANTING INFORMATION ABOUT THE MECHANISM OF ACTION AND WHY IT IS IMPORTANT FOR THE PT'S STATUS. QUESTIONS ANSWERED AND ADDRESSED. FAMILY IS IN ACCEPTANCE WITH PLAN OF CARE AT THIS TIME.
[2018-09-16 05:05] LABS: PLATELET COUNT 218 x10^3mcL (130-400)
[2018-09-16 05:15] LABS: BASOPHIL % 0 % (0-2)
--- NOTE | 2018-09-16 05:20 | NUR ---
CRITICAL WBC LEVEL OF 3.4.
[2018-09-16 05:57] LABS: CARBON DIOXIDE 34.3 mmol/L (21-32); CHLORIDE SERUM 106 mmol/L (98-107); GLUCOSE SERUM 175 mg/dL (74-106); POTASSIUM SERUM 3.4 mmol/L (3.5-5.1); SODIUM SERUM 146 mmol/L (136-145)
[2018-09-16 06:02] LABS: ALBUMIN 3.1 g/dL (3.4-5.0); CALCIUM 8.5 mg/dL (8.5-10.1); PHOSPHOROUS 3.4 mg/dL (2.5-4.9); TOTAL PROTEIN, SERUM 6.5 g/dL (6.4-8.2)
[2018-09-16 06:03] LABS: ALKALINE PHOSPHATASE 72 U/L (46-116); ALT/SGPT 23 U/L (14-59); AST/SGOT 20 U/L (15-37); BILIRUBIN TOTAL 0.28 mg/dL (0.20-1.00); MAGNESIUM 2.4 mg/dL (1.8-2.4)
--- NOTE | 2018-09-16 06:05 | NUR ---
PT LINEN AND GOWN CHANGED D/T URINARY INCONTINENCE. PT TOLERATED WELL. NO SIGNS OF RESP DISTRESS
--- NOTE | 2018-09-16 07:23 | NUR ---
REPORT GIVEN TO FREIDA MONTENEGRO. QUESTIONS ANSWERED AND ADDRESSED.
--- NOTE | 2018-09-16 07:30 | NUR ---
RECEIVED PATIENT. PATIENT IS AWAKE AND ALERT. ORIENTED TO SELF. PATIENT IS ON SIMPLE MASK AT 6L, RR EVEN AND LABORED. PATIENT IS TACHYPNIC. PRECEDEX INFUSING WELL AT 0.2MCG/KG/HR. IV SITE PATENT TO RIGHT HAND 22G, NO S/S ERYTHEMA AT SITE. HOB ELEVATED. SAFETY PREC IN PLACE. SIDE RAILS UP X2. FAMILY AT THE BEDSIDE. WILL CONTINUE PLAN OF CARE.
--- NOTE | 2018-09-16 10:58 | NUR ---
PATIENT IS RESTING PEACEFULLY WITH FAMILY AT THE BEDSIDE. DENIES FEELINGS OF ANXIETY AND RESTLESSNESS. PATIENT APPEARS RELAXED AND CALM. REMAINS ON SIMPLE MASK, 6L, O2 SAT 95%. RESP REMAIN EVEN, PATIENT IS TACHYPNIC, DENIES SOB. WILL CONTINUE TO MONITOR.
--- NOTE | 2018-09-16 12:38 | NUR ---
PT TAKEN OFF OF SIMPLE MASK 6 L/MIN AND PLACED ON NASAL CANNULA 6 L/MIN HUMDIFIED.
--- NOTE | 2018-09-16 12:41 | NUR ---
RT TONYA AT BEDSIDE. PATIENT TAKEN OFF SIMPLE MASK AND TITRATED TO 6L NC. PATIENT TOLERATING WELL. O2 SAT 95%. WILL CONTINUE TO MONITOR.
--- NOTE | 2018-09-16 14:00 | NUR ---
SPOKE WITH DR ROLON. PATIENT TO BE TITRATED OFF OF PRECEDEX TOLERATED. K 3.4 REPORTED AND K-RIDER TO BE ORDERED. PATIENT TO BE KEPT STRICT NPO DUE TO HIGH RISK FOR ASPIRATION. PENDING SWALLOW EVAL.
--- NOTE | 2018-09-16 14:09 | NUR ---
PATIENT CALM AND COOPERATIVE. RESTING WITH BOTH EYES CLOSED, AROUSABLE. PRECEDEX GTT STOPPED AT THIS TIME.
--- NOTE | 2018-09-16 14:16 | NUR ---
DECREASED NASAL CANNULA TO 4 L/MIN.
--- NOTE | 2018-09-16 14:46 | NUR ---
DR. ROLON SPEAKING WITH PT'S FAMILY IN UNIT AND PROVIDED THEM WITH UPDATES. ALL CONCERNS AND QUESTIONS ADDRESSED. WILL CONT TO MONITOR
--- NOTE | 2018-09-16 15:07 | NUR ---
KARIMI CATHETER INSERTED AT THIS TIME. PATIENT TOLERATED WELL. STERILE TECHNIQUE MAINTAINED. OUTPUT: PALE YELLOW URINE. WILL CONTINUE TO MONITOR.
--- NOTE | 2018-09-16 15:26 | NUR ---
PATIENT C/O GENERALIZED HEADACHE AT THIS TIME. DR ROLON PAGED. PENDING CALL BACK.
--- NOTE | 2018-09-16 19:10 | NUR ---
REPORT GIVEN TO [place]. ALL QUESTIONS ANSWERED AND ADDRESSED.
--- NOTE | 2018-09-16 19:54 | NUR ---
REC'D REPORT FROM ALDA RN TO ASSUME CARE. PT SEEN LYING IN BED COMFORTABLY. DENIES ANY PAIN OR DISCOMFORT. PT IS A/O X1 WITH EPISODES OF CONFUSION. FAMILY MEMBERS AT BEDSIDE. PT ASKING FOR WATER, PT AND FAMILY TEACHING PROVIDED STRICT NPO D/T HIGH RISK ASPIRATION PRECAUTION. GOOD RETURN DEMONSTRATION PROVIDED BY FAMILY MEMBERS PROVIDING MOUTH CARE WITH ORAL SWAB TO MOISTEN MOUTH. NO SOB NOTED, RESPS E/U ON O2 4LPM VIA NC. CHEST RISE EQUAL AND SYMMETRICAL. LUNG SOUNDS CLEAR BUL, DIM MARNI BASES. BOTTOM CRANE OPERATOR IN PLACE SHOWING NSR WITH HR 93. DENIES ANY CP, SYNCOPE, OR DIZZINESS. CHEST WALL STABLE. ABD FLAT, SOFT, NONTENDER TO TOUCH. BOWEL SOUNDS HYPOACTIVE. COLOSTOMY BAG INTACT AND SECURED DRAINING WELL. F/C INTACT AND DRAINING VIA GRAVITY CLEAR YELLOW URINE. NO VAGINAL BLEEDING OR DISCHARGE NOTED. PT REQUIRES MAXIMUM ASSISTANCE FOR BED MOBILITY. TURNED AND REPOSITIONED Q2H AND PRN FOR PRESSURE RELIEF. CALL LIGHT WITHIN REACH. WILL CONTINUE TO MONITOR. RELIEF.
--- NOTE | 2018-09-16 20:03 | NUR ---
RT AT BEDSIDE PROVIDING BREATHING TX.
--- NOTE | 2018-09-16 22:03 | NUR ---
PT C/O SEVERE HEADACHE, VITAL SIGNS WNL. PT REPOSITIONED AT THIS TIME, INEFFECTIVE. CALLED [facility], SPOKE TO DR ROLON. NEW ORDER MORPHINE 2MG IVP Q4H PRN FOR PAIN. TELEPHONE ORDER READ BACK. ORDER NOTED AND CARRIED OUT. PATIENT AND FAMILY MADE AWARE OF NEW ORDER.
--- NOTE | 2018-09-16 22:22 | NUR ---
PTS FAMILY MEMBER AT BEDSIDE STATES PT ALLERGIC TO MORPHINE AND TRAMADOL. MORPHINE IVP WASTED. DR ROLON PAGED AT THIS TIME FOR FURTHER ORDERS. ALLERGIES DOCUMENTED.
--- NOTE | 2018-09-17 00:07 | NUR ---
PT RESTLESS, RESP RATE 40-45, O2 SAT 91%, SIMPLE MASKED PLACED @ 8LPM, O2 SAT 95%. EXPLAINED TO FAMILY AT BEDSIDE PT CONTINUES TO BE RESTLESS AFTER ATIVAN IVP AND TORADOL IVP WAS GIVEN. FAMILY AGREES TO TURN ON PRECEDEX GTT. PRECEDEX GTT TURNED ON AT THIS TIME @ 0.2 MCG/KG/HR. WILL CONTINUE TO MONITOR.
--- NOTE | 2018-09-17 02:30 | NUR ---
PT SEEN WITH EYES OPEN AND RESTLESS. PTS FAMILY AT BEDSIDE STATING THEY WANT MEDICATION TO MAKE HER SLEEP. EXPLAINED PRECEDEX GTT IS INFUSING, INCREASED TO 0.4 MCG/KG/HR.
--- NOTE | 2018-09-17 02:33 | NUR ---
PT AWAKE C/O NAUSEA, ZOFRAN IVP GIVEN AT THIS TIME.
[2018-09-17 03:55] VITALS: BP 110/56
--- NOTE | 2018-09-17 05:00 | NUR ---
PRECEDEX TITRATED DOWN TO 0.2 MCG/KG/HR.
[2018-09-17 05:08] LABS: BASOPHIL % 0.4 % (0-2); PLATELET COUNT 199 x10^3mcL (130-400); RED CELL DISTRIBUTION WIDTH 16.5 % (11.5-14.5)
[2018-09-17 05:20] LABS: CALCIUM 9.1 mg/dL (8.5-10.1); CARBON DIOXIDE 36.3 mmol/L (21-32); CHLORIDE SERUM 107 mmol/L (98-107); CREATININE SERUM 1.2 mg/dL (0.6-1.0); GLUCOSE SERUM 197 mg/dL (74-106); POTASSIUM SERUM 3.5 mmol/L (3.5-5.1); SODIUM SERUM 147 mmol/L (136-145)
--- NOTE | 2018-09-17 06:00 | NUR ---
PRECEDEX GTT TURNED OFF AT THIS TIME.
--- NOTE | 2018-09-17 06:14 | NUR ---
PARTIAL BED BATH PROVIDED. LINENS CHANGED. F/C CARE PROVIDED. PT REPOSITIONED TO COMFORT.
[2018-09-17 07:30] VITALS: BP 128/57
--- NOTE | 2018-09-17 07:30 | NUR ---
RECEIVED A BEDSIDE REPORT, SEEN IN BED RESTING WITH EYES CLOSED. NO RESP DISTRESS NOTED. ON 10L VIA SIMPLE MASK, O2SAT NOTED 95%. DIMINISHED LUNG SOUND BILATERALLY. HOB ELEVATED AT 30DEG. S/L TO RT HAND INTACT. COLOSTOMY TO LLQ. KARIMI CATH DRAINING TO GRAVITY YELLOW URINE IN COLOR. GEN BODY WEAKNESS WITH MAXIMUM ADLS ASSISTANCE. FAMILY MEMBERS AT BEDSIDE. ALL SIDERAILS UP X4.
--- NOTE | 2018-09-17 07:40 | NUR ---
REPOSITIONED FOR COMFORT.
--- NOTE | 2018-09-17 11:19 | NUR ---
TURNED AND REPOSITIONED TO RIGHT SIDE, KEPT HOB AT 30DEG. FAMILY AT BEDSIDE. TORV=[id number].
[2018-09-17 12:00] VITALS: BP 127/59
--- NOTE | 2018-09-17 12:00 | NUR ---
TURNED AND REPOSITIONED TO BACK PER PATIENT'S REQUESTED. KEPT HOB AT 30DEG FOR COMFORT. FAMILY AT BEDSIDE.
--- NOTE | 2018-09-17 12:17 | NUR ---
PT REPORTS COMPLAIN OF [place] 01/06, MEDICATED WITH TORADOL IVP PER PRN ORDERS. WILL CONT TO MONITOR.
--- NOTE | 2018-09-17 13:07 | NUR ---
TURNED&REPOSITIONED TO BACK SIDE PER PATIENT'S FAMILY REQUESTED.
--- NOTE | 2018-09-17 14:41 | NUR ---
AZITHROMAX IVPB INFUSING AT THIS TIME TO RT HAND IV SITE, NO SWELLING OR ERYTHEMA NOTED TO SITE. FAMILY MEMBER AT BEDSIDE.
--- NOTE | 2018-09-17 15:31 | NUR ---
SEEN BY DOCTOR ROLON, PATIENT'S FAMILY MEMBERS AT BEDSIDE MADE AWARE OF CURRENT CONDITION AND PLAN OF CARE, INTERPRETED BY PATIENT'S GRANDAUGHTER. BEDSIDE NURSING SWALLOW EVAL DONE PER DOCTOR ROLON'S ORDERS, NO COUGHING OR SIGNS OF ASPIRATION NOTED. JELLOW PROVIDED AND FED BY PATIENT'S DAUGHTER.
--- NOTE | 2018-09-17 16:31 | NUR ---
APPLE JUICE PROVIDED, FINISHED 50% OF JUICE, NO ASPIRATION NOTED. DAUGHTER AT BEDSIDE.
--- NOTE | 2018-09-17 18:37 | NUR ---
RECEIVED PT FROM ICU VIA KENDRA. A/OX2, RESP EQUAL AND UNLABORED, MILD SOB NOTED UPON EXERTION. VSS. BP 136/74, MAP 90, HR 95, 02 SAT 95% ON 6L02 VIA SIMPLE MASK, TEMP 98.6, RESP 26. KARIMI CATH NOTED WITH CLEAR YELLOW DRAINAGE, LEFT COLOSTOMY NOTED. IV NOTED TO RH PATENT AND INTACT. INSTRUCTED PT AND FAMILY ON THE USE OF CALL LIGHT FOR ASSISTANCE. BED IN LOWEST POSITION AND SIDE RAILS UPX2
--- NOTE | 2018-09-17 19:15 | NUR ---
AOX2. TELE #5, SR. RESP E/U WITH MILD SOB. ON SIMPLE MASK @ 6L. PULSES PALPABLE. NO EDEMA. BOWEL SOUNDS ACTIVE. COLOSTOMY NOTED TO LUQ. KARIMI CATH IN PLACE WITH YELLOW URINE. ON AIR MATTRRESS. HOB ELEVATED 30 DEGREES. SL TO RH, PATENT, CDI. DENIES PAIN. FAMILY MEMBER AT BEDSIDE. BED IN LOWEST POSITION, 2 SIDE RAILS UP, CALL LIGHT IN REACH. INSTRUCTED TO CALL FOR ASSISTANCE.
[2018-09-17 20:28] VITALS: BP 137/64
--- NOTE | 2018-09-18 01:12 | NUR ---
RESTING IN BED WITH EYES CLOSED. BREATHING EVEN AND UNLABORED ON SIMPLE MASK @ 6L. NO ACUTE DISTRESS NOTED. WILL CONTINUE TO MONITOR.
[2018-09-18 05:30] VITALS: BP 159/77
--- NOTE | 2018-09-18 05:46 | NUR ---
NO ACUTE CHANGES. RESP E/U, ON SIMPLE MASK @ 6 L, O2 SAT 94%. WILL ENDORSE TO ONCOMING RN
--- NOTE | 2018-09-18 07:09 | NUR ---
RECEIVED REPORT FROM KP MONTENEGRO. PT RESTING COMFORTABLY IN BED WITH DAUGHTER AT BEDSIDE. AIR MATTRESS IN PLACE. IV TO RT HAND IS PATENT AND INTAT. NO REDNESS OR PAIN. PT ON O2 6L WITH SIMPLE MASK. NO C/O SOB AND NO DISTRESS NOTED. TELE # [address] ALL QUESTIONS AND CONCERNS ADDRESSED.
[2018-09-18 09:00] VITALS: BP 144/63
--- NOTE | 2018-09-18 11:07 | NUR ---
Initial Nutrition Assessment Dx: PNA, Hypoxia PMHx: DM, Asthma, Bronchitis PSHx: None Labs: (09/17) Na 147H, K 3.5, BG 197H, BUN 46H, Cr 1.2H, WBC 3.6L, H/H 12.9/38 BG readings (09/16-09/18): Mosting readings <180 mg/dL with insulin coverage provided PRN. Meds: Ambien, Ativan, D50%, Humulin, Lasix, Mucinex, [place], Solu-Medrol, Toradol, Tylenol, Zofran, Rocephin, Heparin Diet: CLD (previously on CCHO) d/t aspiration risk PO Intake: (09/17) B: 80% D: 40% Ht: 58" (147 cm) Wt: 104# (47.3 kg) BMI: 21.8 (Slightly underweight considering advanced age) IBW: 96# %IBW: 108% UBW: 110# Age: 88 y/o elderly female Food Allergies: NKFA Skin: BUE discolorations Dejuan: 15 Edema: None GI: Last BM x output 20 mL (09/16) from colostomy bag to LLQ Per H&P, pt. admitted with recent history of coughing and sore throat x 3 days associated with worsening of symptoms. Otherwise no acute events overnight per provider progress notes. Bedside swallow screen conducted by nursing staff on 09/17/18 for pt. high risk for aspiration; pt. tolerating clear liquids without s/s aspiration or choking. Pt. appears drowsy and disoriented during visit; relied on family members and nursing staff for translation. Endorses no GI distress at this time associated with clear liquid diet. Family is verbalizing concern for pt. that she is only getting clear liquids and not "real food in her system." Endorses that pt. begins to cough when given clear liquids in a large quantity, but is able to tolerate small sips and bites of jello, water, and Ensure Clear without s/s aspiration. Requesting for a swallow evaluation, as pt. and family member states that they want the pt. to begin consuming food items instead of clear liquids. Attempted to contact provider, who was unavailable at this time of contact. Endorsed to dry charge process attendant regarding ST swallow evaluation recommendation for provider. Problem with: No c/o N/V/D/C Problems with: Chewing: N Swallowing: Y Current appetite: Fair to poor Recent wt change: None %wt change: N/A Vitamin/Supplement use: None Special diet at home: Regular Physical activity: None d/t advanced age and chronic medical conditions Education: No diet education provided at this time; pt. appears confused and disoriented during visit. Family has the [facility] handout for CCHO diet/CCHO counting from previous admission; declined further diet education at this time. Estimated Nutritional Needs Based on actual body weight 47.3 kg: Energy: 8787-4753 kcal/d (25-30 kcal/kg- geriatric maintenance) Protein: 47-57 g/d (1.0-1.2 g/kg)-geriatric maintenance and preservation of lean body mass Fluid: 1791-5633 ml/d (1 ml/kcal-fluid balance) or per doctor Nutrition Diagnosis 1. Inadequate PO intake r/t reported fair appetite and current diet order 2/2 medical conditions AEB pt. currently on CL diet, with documented PO intake meeting <75% estimated calorie and protein needs. 2. Difficulty swallowing r/t advanced age and medical conditions AEB pt. family reports of pt. coughing when provided with large quantities of clear liquids during meal times. Intervention/RD recommendations 1. Continue clear liquid diet as tolerated and as able with Ensure Clear TID as ordered. When medically able, gradually advance diet to CCHO as tolerated/diet texture as recommended by ST or provider. When diet is advanced, add Glucerna TID for supplementation to add an additional 660 calories and 30 g protein. 2. Recommendations for ST swallow evalution for family reports of pt. coughing with clear liquids provided in large quantities and desire for pt. to advance PO diet. Monitor/Evaluate Goal: PO intake at least 50% of estimated needs Monitor: PO intake, Labs, GI function, diet tolerance, BG readings <180 mg/dL F/U in 2-3 days as high risk (09/20-09/21)
[2018-09-18 14:06] VITALS: BP 139/67
--- NOTE | 2018-09-18 14:54 | NUR ---
SPOKE WITH DR FLOR TO REQUEST SEALLOW EVAL. DR FLOR OK.
[2018-09-18 17:00] VITALS: BP 145/76
--- NOTE | 2018-09-18 17:20 | NUR ---
PHYSICAL THERAPY NOTE ATTEMPTED FOR EVAL, DEMONSTRATED POOR TOLERANCE TO EOB, O2 SAT DROP TO 90% AT EOB FROM 97% ON SUPINE WITH 4L. ALSO DEMONSTRATED POOR RESPONSE ON COMMAND. NSG NOTIFIED. EVAL TO BE ATTEMPTED NEXT SESSION
--- NOTE | 2018-09-18 17:44 | NUR ---
SPOKE WITH DR FLOR FOR PAIN MEDICATION FOR PT. DR FLOR ORDERED DILAUDID 1 MG IVP Q4HP.
--- NOTE | 2018-09-18 19:15 | NUR ---
REPORT RECIEVED FROM DAY SHIFT RN. PATIENT WAS SEEN AND IS RESTING COMFORTBALY IN BED WITH FAMILY AT BEDSIDE. BREATHING EVEN ON 4L OXYMIZER. NO RESP DISTRESS NOTED. NO SOB. DENIES CHEST PAIN. NO C/O OF PAIN. COLOSTOMY TO LLQ. NO OUTPUT NOTED. KARIMI CATH IN PLACE. DRAINING YELLOW URINE BY GRAVITY. IV TO RIGTH HAND. SALINE LOCK. PATENT AND INTACT. NO REDNESS OR SWELLING NOTED. PATINET REPOSITIONED TO COMFORT. COMFORT AND SAFETY MEASURES MAINTAINED. BED IS LOCKED AND IN THE LOWEST POSITION. SIDE RAILS UP X2. CALL LIGHT IS WITHIN REACH. WILL CONTINUE TO MONITOR.
--- NOTE | 2018-09-18 19:45 | NUR ---
REPORT GIVEN TO LOKESH MONTENEGRO. PT RESTING COMFORTABLY IN BED WITH FAMILY AT BEDSIDE. ALL NEEDS MET. ALL QUESTIONS AND CONCERNS ADDRESSED. ALL CARES ENDORSED.
[2018-09-18 21:47] VITALS: BP 136/73
--- NOTE | 2018-09-19 01:26 | NUR ---
PATIENT IS RESTING WITH EYES CLOSED AT THIS TIME. NO DISTRESS NOTED. BREATHING EVEN ON 4L OXYMIZER. DAUGHTER AT BEDSIDE. NO S/S OF PAIN. KARIMI IS DRAINING YELLOW OUTPUT BY GRAVITY. COMFORT AND SAFETY MEASURES MAINTAINED. CALL LIGHT IS WITHIN REACH. WILL CONTINUE TO MONITOR.
--- NOTE | 2018-09-19 05:13 | NUR ---
PATIENT SLEPT IN SHORT INTERVAL THROUGHOUT THE NIGHT. NO ACUTE/ SIGNIFICANT CHANGES NOTED. BREATHING EVEN ON 4L OXYMIZER. NO SOB OR RESP DISTRESS NOTED. NO C/O PAIN THROUHGOUT THE NIGHT. DENIES CHEST PAIN. KARIMI CATH IN PLACE DRAINING YELLOW URINE BY GRAVITY. COLOSTOMY LLQ 0 OUTPUT NOTED. IV TO THE RIGHT HAND, S.L, PATENT AND INTACT. NO REDNESS OR SWELLING NOTED. COMFORT AND SAFETY MEASURES MAINTAINED. CALL LIGHT IS WITHIN REACH. WILL ENDORSE CARE TO DAY SHIFT RN.
[2018-09-19 05:41] VITALS: BP 159/78
--- NOTE | 2018-09-19 07:31 | NUR ---
RECEIVED PT'S REPORT FROM LEAVING NURSE. PT SEEN REST ON BED WITH HER FAMILY MEMBER AT BEDSIDE. PT BREATHING ON O2 4L VIA OXYMIZER, EVEN, UNLABORED AT THIS TIME. KARIMI IN PLACE DRAINING FREELY VIA GRAVITY, URINE COLOR YELLOW. AIR MATTRESS APPLIED. IV SITE SALINE LOCK.
--- NOTE | 2018-09-19 09:40 | NUR ---
METAL STAMPER CAME TO TALK TO PT'S FAMILY ABOUT HOSPICE PLAN, BUT THEY ARE STILL UNABLE TO MAKE THE DESICION AT THIS TIME.
[2018-09-19 09:57] VITALS: BP 159/78
[2018-09-19 10:04] VITALS: BP 140/72
[2018-09-19 12:55] VITALS: BP 153/74
--- NOTE | 2018-09-19 14:58 | NUR ---
PER PT'S GRAND DAUGHTER'S REPORT, PT COMPLAIN ABOUT BODY PAIN. TORADOL GIVEN PER ORDER.
--- NOTE | 2018-09-19 17:04 | NUR ---
PT WAS SEEN FOR DYPHAGIA. PT HAD SEVERE POCKETING AND DELAY IN SWALLOW INDICATING HIGH RISK OF ASPIRATION. RECOMMENDATION ALTERNATE MODE OF FEEDING IN CONSULTATION WITH PHYSICIAN.
--- NOTE | 2018-09-19 17:04 | NUR ---
NOTIFIED DR FLOR THAT PER SPEECH THERAPIST RECOMMENDATION PATIENT TO BE NPO AT THIS TIME AND ALSO FAMILY REQUESTED PATIENT TO BE FED. PER DR FLOR TO INSERT NGT AND START NGT FEEDING WITH JEVITY AT 40ML/HR. ATTENDING NURSE RENETTA MADE AWARE.
[2018-09-19 17:59] VITALS: BP 154/73
--- NOTE | 2018-09-19 18:16 | NUR ---
PT'S FAMILY MEMBERS AT BEDSIDE MADE FINAL DECISION, THEY REFUSED TO INSERT NGT AT THIS TIME, AND PREFER POSSIBLE GT TOMORROW.
--- NOTE | 2018-09-19 18:57 | NUR ---
PT PRESENT VERY TIRED. FAMILY MEMBERED AT BEDSIDE. THEY ARE AWRE PT SHOULD BE NPO BECAUSE PT DIDN'T FINISH SWALLOW EVAL, AND POSSIBLE GT PLACEMENT TOMORROW. PT BREATHING ON O2 4L VIA OXYMIZER, EVEN, MILD LABORED NOTED. KARIMI INPLACE, URINE OUTPUT 500ML THROUGH SHIFT. IV SITE SALINE LOCK.
--- NOTE | 2018-09-19 19:30 | NUR ---
RECEIVED REPORT FROM DAY SHIFT RN. PT RESTING WITH EYES CLOSED. EASILY AROUSABLE WITH VERBAL STIMULI. NO SOB ON O2 4L OXYMIZER. NO C/O PAIN. NO DISTRESS NOTED. IV TO RIGHT HAND, INTACT. KARIMI CATHETER IN PLACE, DRAINING YELLOW URINE BY GRAVITY. COLOSTOMY TO LLQ. SAFETY MEASURES IN PLACE. BED IN LOWEST POSITION. SIDE RAILS UP X2. INSTRUCTED PT AND FAMILY TO USE THE CALL LIGHT FOR ASSISTANCE. CALL LIGHT WITHIN REACH. FAMILY AT BEDSIDE.
--- NOTE | 2018-09-19 20:40 | NUR ---
INFORMED DR HOLLINGSWORTH ABOUT REFUSAL OF NG TUBE PLACEMENT AND SWALLOW EVAL NOT COMPLETED. PER DR HOLLINGSWORTH, NPO TONIGHT, GIVE HEPARIN SQ TONIGHT AND HOLD HEPARIN SQ TOMORROW MORNING.
[2018-09-19 21:36] VITALS: BP 136/73
--- NOTE | 2018-09-20 03:05 | NUR ---
PT RESTING WITH EYES CLOSED. NO SOB ON O2 4L VIA OXYMIZER. BREATHING EVEN AND UNLABORED. NO FACIAL GRIMACING. FAMILY AT BEDSIDE.
[2018-09-20 05:44] VITALS: BP 143/86
--- NOTE | 2018-09-20 07:00 | NUR ---
PT SLEPT IN INTERVALS. NO SOB ON O2 4L VIA OXYMIZER. NO C/O PAIN. SAFETY MEASURES MAINTAINED. ALL NEEDS ATTENDED TO. FAMILY AT BEDSIDE. WILL ENDORSE CONTINUITY OF CARE TO ONCOMING RN.
[2018-09-20 07:10] LABS: BASOPHIL % 0.1 % (0-2); PLATELET COUNT 171 x10^3mcL (130-400)
--- NOTE | 2018-09-20 07:30 | NUR ---
PT IS AAOX1-[address] TELE [address] READING NSR WITH INTERMITTENT PACS. LUNG SOUNDS DIMINISHED BILATERALLY. ON 02 OXIMIZER AT 4LPM. COLOSTOMY TO LLQ WITH MININAL LIGHT BROWN STOOL NOTED. IV CATH TO L HAND PATENT, SITE WNL. PT WILL BE TURNED AND REPOSITIONED THROUGH OUT SHIFT. DENIES PAIN AT THIS TIME. CALL LIGHT WITHIN REACH. BED IN LOW POSITION. BED ALARM ON.
[2018-09-20 07:39] LABS: ALBUMIN 3.6 g/dL (3.4-5.0); ALKALINE PHOSPHATASE 77 U/L (46-116); ALT/SGPT 64 U/L (14-59); AST/SGOT 35 U/L (15-37); BILIRUBIN DIRECT 0.22 mg/dL (0.0-0.2); BILIRUBIN TOTAL 0.7 mg/dL (0.20-1.00); CHLORIDE SERUM 107 mmol/L (98-107); CREATININE SERUM 1.3 mg/dL (0.6-1.0); GLUCOSE SERUM 191 mg/dL (74-106); SODIUM SERUM 153 mmol/L (136-145); TOTAL PROTEIN, SERUM 7.4 g/dL (6.4-8.2)
[2018-09-20 07:47] LABS: CARBON DIOXIDE 41.2 mmol/L (21-32)
[2018-09-20 07:52] LABS: RED CELL DISTRIBUTION WIDTH 16.5 % (11.5-14.5)
--- NOTE | 2018-09-20 07:58 | NUR ---
LAB REPORTED CRITICAL LABS, CO2 = 41.5, BUN 69. PAGED DR. FLOR AWAITING CALL BACK. REPORTED TO ROHITH R/T, ROHITH IS IN ROUTE TO ASSESS PT. WILL CONTINUE TO MONITOR.
--- NOTE | 2018-09-20 08:22 | NUR ---
REPORTED TO DR. FLOR PT'S CO2 = 41.[address] FLOR STATED NO NEW ORDERS AT THIS TIME. HE WILL BE IN TO ASSESS IN ABOUT ONE HOUR. R/T ASSESSED PT, OXIMIZER OX INCREASED TO 4.2. PT AND FAMILY TAUGHT THAT PT NEEDS TO DEEP BREATH FREQUENTLY. DAUGHTER VERBALIZED UNDERSTANDING.
--- NOTE | 2018-09-20 09:21 | NUR ---
DUE MED GIVEN. HEPARIN HELD FOR POSSIBLE PROCEDURE. PT REMAINS NPO. RESP EVEN AND UNLABORED. DR. HOLLINGSWORTH MET WITH FAMILY AND PT AND DISCUSSED POSSIBLE EGE WITH PEG TUBE PLACEMENT. PT AND FAMILY AGREED WITH POC. PT RESPOSITIONED FOR COMFORT. CALL LIGHT WITHIN REACH. BED IN LOW POSITION. BED ALARM ON.
[2018-09-20 09:57] VITALS: BP 135/73
--- NOTE | 2018-09-20 11:07 | NUR ---
KCL 20MEQ WITH 0.45%NS STARTED. PT TAKEN FOR EGD AND PEG PLACEMENT AT THIS TIME. REPORT GIVEN TO VLADISLAV.
--- NOTE | 2018-09-20 13:50 | NUR ---
GLUCERNA 1.2 GTUBE FEEDING STARTED AT 2O ML WITH 50ML FLUSHES Q 4 HOURS. PT TOLERATING FEEDING WELL AT THIS TIME. CALL LIGHT WITHIN REACH. BED IN LOW POSITION, BED ALARM ON. FAMILY AT BEDSIDE.
--- NOTE | 2018-09-20 14:26 | NUR ---
Follow-up Nutrition Assessment- 219T/A EDWARDSTANA MILES FU HR Dx: PNA, Hypoxia Labs: (09/20) NA 152H, BG 191H, BUN 69H, CREAT 1.3H, WBC 12.1H Meds: Lasix, mucinex, zofran Diet: (09/20) Glucerna 1.2 @ 20ml/hr, goal 45ml/hr, (09/19) TF (NG) Jevity 1.2 @ 40 ml/hr PO intake: TF not initiated Weights: (09/13) 46.7 kg, (09/16) 49 kg, (09/17) 47.3 kg Skin: ecchymosis to BUE noted Dejuan: 15 Edema: none Last BM: 09/17 Per Progress note (09/19): Patient's asthma is controlled with Advair and PRN albuterol and despite being complaint her symptoms worsened. She was started on IV steroids and antibiotics and her dyspnea is improved and has residual cough. Awaiting hospice eval. RDN Visit (09/20): pt was not at bedside. Information was obtained from RN Sondra. She said that pt recently got a new TF order (Glucerna 1.2 @ 20ml/hr, goal 45ml/hr) and will be initiated soon. Per PLATER HOT DIP pt failed swallow eval. Estimated Nutritional Needs based on actual BW 47.3 kg: Energy: 1288-0353 kcal (25-30 kcal- geriatric maintenance) Protein: 47-57 g (1.0-1.2g/kg- geriatric maintenance and prevention of lean body mass losses) Fluid: 7993-0974 mL (1 mL/kcal or per MD order-for fluid balance and maintenance) Nutrition Diagnosis 1. Inadequate energy intake related to medical condition as evidenced previous NPO diet order and current TF regimen not initiated. 2. Difficulty swallowing related to advanced age and medical condition as evidenced by pt failing swallow eval by PLATER H[facility] DIP Intervention 1. Initiate Glucerna 1.2 @ 20ml/hr, goal 45ml/hr. FWF 50 ml q 4hr. Goal rate provides 1300 kcal and 65 g protein. Monitor/Evaluate Previous goal: adv ance to CCHO when appropriate (not met) Goal: TF intake at least 75% of estimated needs Monitor: TF intake/tolerance, Labs, GI function F/U in 2-3 days as high risk
--- NOTE | 2018-09-20 14:26 | NUR ---
1. Initiate Glucerna 1.2 @ 20ml/hr, goal 45ml/hr. FWF 50 ml q 4hr. Goal rate provides 1300 kcal and 65 g protein.
--- NOTE | 2018-09-20 16:27 | NUR ---
TYLENOL 650MG GTUBE GIVEN FOR GENERALIZED PAIN 10/06. GTUBE FLUSED WITH 3OML H2O, REMAINS PATENT WITH GLUCERNAL 20ML RUNNING. ABDOMINAL BINDER APPLIED TO PROTECT GTUBE SITE. OPTIFORM APPLIED TO SACRAL AREA FOR SKIN MAINTENNACE. PT IN SEMIFOWLERS, BED ALARM ON. CALL LIGHT WITHIN REACH. FAMILY AT BEDSIDE.
--- NOTE | 2018-09-20 16:35 | NUR ---
PT ASSISTED ON TO BED PRICE. PT OFF BED PRICE AT THIS TIME. RESP EVEN AND UNLABORED. NOT DISTRESS NOTED. DENIES PAIN AT THIS TIME. CALL LIGHT WITHIN REACH. BED ALARM ON.
[2018-09-20 17:52] VITALS: BP 147/69
--- NOTE | 2018-09-20 18:38 | NUR ---
PT AAOX2 TO PERSON AND PLACE. RESP EVEN AND UNLABORED. PT HAS GTUBE GLUCENA RUNING AT 20 ML/HR. PT TOLERATING FEEDING WELL, NO RESIDUAL NOTED. BED IN SEMI FOWLERS. APPLIED GAUZE DRAIN DRESSING AND TAPE TO GTUBE SITE, CDI. SITE WNL. COLOSTOMY BAG JEAN LLQ WITH MINIMAL LIGHT BROWN OUTPUT. TELE [address] READING NSR. IV CATH TO L HAND WITH FLUIDS RUNNING, SITE WNL. IV CATH TO R HAND N/S LOCKED. SITE WNL. WILL ENDORSE ALL CARE TO NOC RN.
--- NOTE | 2018-09-20 19:38 | NUR ---
AWAKE, FOLLOWS BASIC COMMAND. HOB ELEVATED 35 DEG. SINUS RHYTHM WITH PACS. GENERALIZED WEAKNESS. IVF OF 1/2 NS WITH 20 MEQ KCL INFUSING AT 30ML/HR TO IV SITE TO LEFT WRIST. SALINE LOCK TO RIGHT HAND. PT TURNED AND REPOSITIONED. NOTED OPTIFOAM IN PLACE TO SACRUM/COCCYX. MOISTENED LIPS AND CLEANSED MOUTH AND TONGUE WITH MOUTH SWAB WITH WATER. ON AIR MATTRESS.
--- NOTE | 2018-09-20 19:51 | NUR ---
STATED HAVING DIFFICULTY BREATHING. RESP THERAPIST KOTA PROVIDING BREATHING TREATMENT.
--- NOTE | 2018-09-20 21:00 | NUR ---
HOB KEPT ELEVATED 35 DEG. BREATHING UNLABORED. FAMILY MEMBERS IN ROOM.
[2018-09-20 21:25] VITALS: BP 129/68
--- NOTE | 2018-09-20 21:27 | NUR ---
EYES CLOSED, BREATHING UNLABORED. HOB KEPT ELEVATED 35 DEG. BED ALARM ON. CALL LIGHT WITHIN EASY REACH. DAUGHTER TO STAY THE NIGHT, OK WITH CN GINI.
--- NOTE | 2018-09-20 22:45 | NUR ---
PT DAUGHTER KEEPS ASKING US TO FEED PT BY MOUTH. EXPLAINED PT NPO, FAILED SWALLOW EVAL. EXPLAINED PT RECEIVING FEEDING VIA G TUBE. EXPLAINED DANGER OF FEEDING PT FOR ASPIRATION. NURSE JAMES HELPED WITH TRANSLATION.
--- NOTE | 2018-09-20 23:25 | NUR ---
REMOVED OLD COLOSTOMY BAG, NOTED SMALL AMOUNT OF SOLID, SOFT STOOL IN BAG. COLOSTOMY APPEARS PINK IN COLOR. NO FOUL ODOR. CLEANSED AREA AROUND COLOSTOMY BAG WITH NS, PATTED DRY WITH STERILE GAUZE. APPLIED SKIN PROTECTANT AND SEALANT TO SKIN AROUND COLOSTOMY. PLACED NEW COLOSTOMY BAG. TURNED AND REPOSITIONED. HOB KEPT ELEVATED 35 DEG.
[2018-09-21] VITALS (7 sets, daily range): BP systolic 132–149; BP diastolic 51–70
--- NOTE | 2018-09-21 02:15 | NUR ---
PT HAS EYES CLOSED, BREATHING UNLABORED. NO MOANING OR GRIMACING NOTED. ON O2 OXYMIZER. OPENED EYES WHEN TURNED AND REPOSITIONED.
--- NOTE | 2018-09-21 04:00 | NUR ---
oral care done. turned and repositioned. hob kept elevated 30 deg. tylenol 650mg adminstered via peg tube for complaint of generalized pain. 200ml of lizbeth colored urine drained from santa cath. feet kept offloaded with pillows.
--- NOTE | 2018-09-21 06:24 | NUR ---
PT'S DAUGHTER EARLIER CAME OUT OF ROOM CRYING, STATED "MY MOTHER IS GONE". CN GINI WENT TO ROOM, PT WAS SLEEPING SOUNDLY, EASILY AWAKENED. BREATHING UNLABORED. PT'S DAUGHTER STATED SHE HAD GONE TO SLEEP AND WHEN SHE WOKE UP, SHE THOUGHT HER MOTHER HAD . EXPLAINED TO HER WE ARE CONTINUOUSLY MONITORING HER MOTHER. ADVISED PT'S DAUGHTER TO REST AT HOME BECAUSE SHE SEEMS ANXIOUS AND TIRED. PT'S DAUGHTER STATED SHE WILL STAY.
--- NOTE | 2018-09-21 06:29 | NUR ---
PT PRESENTLY HAS EYES CLOSED, BREATHING UNLABORED ON O2 OXYMIZER AT 4LPM. HOB KEPT ELEVATED 30 DEG. G TUBE FEEDING AT 20ML/HR. CN GINI AGREED TO KEEP G TUBE RATE AT THIS RATE UNTIL G TUBE ADAPTOR AVAILABLE. DAUGHTER ON CHAIR, EYES CLOSED.
--- NOTE | 2018-09-21 07:11 | NUR ---
AWAKE, BREATHING UNLABORED ON O2 OXYMIZER. IN NO ACUTE DISTRESS. IVF INFUSING WELL. PT'S DAUGHTER AT BEDSIDE. ENDORSED TO NURSE HERBERTH
--- NOTE | 2018-09-21 07:35 | NUR ---
PT IS AAOX2 TO PERSON AND PLACE. RESP EVEN AND UNLABORED. LUNG SOUNDS DIMINISHED BILATERALLY. ON O2 OXIMIZER AT 4 LPM. NO COUGH OR SOB NOTED. TELE [address] READING NSR WITH INTERMITTENT PACS. HR 98. PT HAS L HAND DISCOLORATION AND BUE DISCOLORATION. NO EMEMA NOTED. OPTIFORM IN PLACE ON SACRUUM AND AIR MATRESS IN PLACE FOR SKIN MAINTENANCE. COLOSTOMY BAG TO LLQ, EMPTY AND SECURE, CDI. GTUBE SITE TO R ABDOMEN, COVERED WITH GAUZE AND TAPE, CDI. IVF RUNNING TO L WRIST, PATENT, SITE WNL. PT DENIES PAIN AT THIS TIME. PT WILL BE TURNED AND REPOSTIONED Q 2 HOURS THROUGH OUT SHIFT. BED IN LOW POSITION. FALL PROTOCOL IN PLACE. CALL LIGHT WITHIN REACH.
--- NOTE | 2018-09-21 08:11 | NUR ---
PHYSICAL THERAPY DAILY NOTES CO-SIGN All documentation done by the Internet Marketing Executive for 09/21/18 has been reviewed. I agree with the documentation. Reviewed/Co-Signed by: Anisha Mace PT Documentation Done by:GODFREY VALLES CASHIER SELF SERVICE GASOLINE CO-SIGNED FOR 09/20/2018
--- NOTE | 2018-09-21 09:00 | NUR ---
PT IS SLEEPING IN BED BUT EASILY AROUSABLE. FAMILY AT BEDSIDE. RESP EVEN AND UNLABORED. NO DISTRESS NOTED. CALL LIGHT WITHIN REACH.
--- NOTE | 2018-09-21 10:21 | NUR ---
P.T. NOTES UNABLE TO SEE PATIENT TODAY FOR TREATMENT, PER NURSING PATIENT IS NOT DOING WELL TODAY, ALSO C/O ABD PAIN, WILL ATTEMPT AGAIN NEXT SESSION.
--- NOTE | 2018-09-21 11:49 | NUR ---
RECEIVED ORDER FROM DR. HOLLINGSWORTH, D/C PROTONIX PACKET, NEW ORDER FOR PROTONIX 40MG IVP Q DAILY, FIRST DOSE NOW. ORDER NOTED AND CARRIED OUT. PT AND FAMILY MADE AWARE.
--- NOTE | 2018-09-21 12:30 | NUR ---
PT NOTED WITH ZERO GTUBE RESIDUAL. GTUBE FEEDING ADVANCED TO 30ML. NEXT ADVANCEMENT IN RATE OF FEEDING WILL BE AT 1230AM ON 09/22/18.
--- NOTE | 2018-09-21 12:55 | NUR ---
PROTONIX 40MG IVP GIVEN. MOUTH CARE GIVEN. RESP EVEN AND UNLABORED. NO S/S OF DISTRESS NOTED. CALL LIGHT WITHIN REACH. BED ALARM ON. FAMILY AT BEDSIDE.
--- NOTE | 2018-09-21 14:45 | NUR ---
RECEIVED ORDER FROM DR. FLOR, TORADOL 30 MG IVP X1 NOW. DILAUDID 2MG IVP Q 4 HOURS PRN. ORDER NOTED AND CARRIED OUT. PT AND PT'S FAMILY MADE AWARE.
--- NOTE | 2018-09-21 16:31 | NUR ---
TORADOL 30MG IVP GIVEN SLOW OVER 5 MINUTES. RESP EVEN AND UNLABORED. NO DISTRESS NOTED AT THIS TIME. FAMILY AT BEDSIDE. CALL LIGHT WITHIN REACH. BED IN LOW POSTION. BED ALARM ON.
--- NOTE | 2018-09-21 18:11 | NUR ---
SPOKE WITH PHARMACIST, PT UNABLE TO TAKE DILAUDID DUE TO PT'S ALLERGIC RX TO MORPHINE (SOB, ANXIETY). PT AND FAMILY EDUCATED ON PT'S ALLERGYS AND INCREASED BUN AND CREATININE LEVELS. FAMILY WAS EDUCATED THAT PT IS SAFE WITH TAKING TYLENOL FOR PAIN. PT'S DAUGHTER VERBALIZED UNDERSTANDING.
--- NOTE | 2018-09-21 18:39 | NUR ---
PT IS AAOX2 TO PERSON AND PLACE. RESP EVEN AND UNLABORED. PT IS ON O2 OXIMIZER AT 4 LPM. PT HAS COLOSTOMY ON LLQ, EMPTY AT THIS TIME. GTUBE ON R ABDOMEN COVERED WITH GAUZE AND TAPE, CDI. IV NS LOCKED TO , SITE WNL. IVF RUNNING TO , SITE WNL. NO S/S OF INFECTION NOTED. KARIMI CATH IN PLACE DRAINING CLEAR YELLOW URINE. AIR MATRESS IN PLACE. PT RECEIVING GTUB FEEDING AT 30ML PER HOUR. PT TOLERATING FEEDING WELL WITH NO RESIDUAL. PT DENIES PAIN AT THIS TIME. CALL LIGHT WITHIN REACH. BED IN LOWEST POSITION. BED ALARM ON. FAMILY AT BEDSIDE. PT WAS TURNED AND REPOSITIONED THROUGH OUT SHIFT.
--- NOTE | 2018-09-21 19:50 | NUR ---
PATIENT IS SLEEPING DURING BEDSIDE HANDS OFF WITH OUT GOING NURSE, SPEECH CLEAR ,ORIENTED X2, TONE OF VOICE SOFT.BREATHING EVEN AND UNLABORED, BS DIMINISHED CLEAR, FOUND ON 4LITER VIA OXIMIZER, SAT 97%. HOB AT 30 DEGRESS ANGLE. NO INDICATION NOR VERBALIZATION OF CHEST PAINS, HR=92BPM, TELE#5 SR WITH OCC PAC'S, RHYTHM REGULAR. 09/20 S/P GTPLACED, RECEIVING TUBE FEEDING OF GLUCERNA 1.2 INFUSING VIA [place]ANG[place]OO PUMP AT 30 ML/HR THIS TIME, RATE GOAL ORDERED AT 45 ML/HR AND ADVANCEMENT Q12HRS. SETTING CONFIRMED WITH OUT GOING NURSE, FWF 50 ML Q4HRS, HOLD IF RESIDUAL 200ML AND RESUME IF BELOW 100. CHECKED RESIDUAL AT 50 ML REPLACED, DRESSING AT SIDE CDI, ABDOMINAL BINDER IN USE, LLQ COLOSTOMY BAG INTACT WITH NOTED BROWN SOFT STOOL. HYPOACTIVE BS, NO COMPLAINT OF N/V/D, LAST BM 09/17, POOR APPETITE. ORAL CARE RENDERED FOR DRY ORAL MUCOSA. SKIN INTACT, TURGOR POOR, NOTED DARK DISCOLORATION TO LEFT HAND AND BUE, REDNESS TO SACRAL AREA, OPTIFOAM IN PLACE. KARIMI CATHETER DRAINING YELLOW UA, NO DEPENDENT LOOPS ON TUBING, ,KARIMI BAG OFF THE FLOOE, STAT LOCK INTACT TO THIGH. PATIENT ON AIR MATRESS. GENERALIZER WEAKNESS AND MAX ASSIST WITH ADL'S, NEEDS ANTICIPATED. PATIENT AND FAMILY INFORMED ABOUT POC.SAFETY/FALL PREC MAINTAINED. WILL CONTINUE TO MONITOR.
--- NOTE | 2018-09-21 22:26 | NUR ---
SCHEDULED MEDS ADMINISTERED VIA GTUBE,RESIDUAL RE-CHECKED PRIOR AT 30 ML REPLACED, GTUBE CARE RENDERED. PATIENTS DAUGHTER INFORMED ABOUT PURPOSE AND ACTION OF MEDS GIVEN. HS CRE RENDERED AFTER WARDS, RE-APPLIED OPTIFOAM DRESSING TO SCARAL AREA, TURNED AND REPOSITIONED, KEPT HOB AT SEMI FOWLERS POSITION. ALL CONCERSN AND QUESTIONS OF FAMILY ANSWERED. WILL CONTINUE TO MONITOR.
--- NOTE | 2018-09-21 22:30 | NUR ---
PATIENT SLEEPING OFF AND ON, AWAKEN WHEN NAME CALLED, PATIENT TURNED AND REPOSITIONED THIS TIME, SEEM COMFORTABLE FAMILY AT BS. WILL CONTINUE TO MONITOR.
--- NOTE | 2018-09-22 00:21 | NUR ---
PATIENT REPOSITIONED THIS TIME AGAIN, KEEPING HOB ELEVATED AT SEMI FOWLERS.TUBE FEEDING TUBE CHANGED, ADJUSTED RATE PER ORDER NOW AT 40 ML/HR.OFFERED NO COMPLAINTS. IV SITE NO SIGN OF INFILTRATION. FAMILY AT BS STAYING, OK'D BY CN. SAFETY/FALL PREC. MAINTAINED. WILL CONTINUE TO MONITOR.
--- NOTE | 2018-09-22 02:39 | NUR ---
COMPLAINED OF ABD AND GENERALIZED PAIN, MADE COMFORTBAEL AND MEDICATED PRN.
--- NOTE | 2018-09-22 03:52 | NUR ---
PATIENT CHECKED AND REPOSITIONED,MOANING, FAMILY REQUESTED PAIN MEDS, TYLENOLR GIVEN VIA GTUBE.
--- NOTE | 2018-09-22 04:30 | NUR ---
PATIENT KEPT SUPINE THIS TIME, NO DISTRESS, O2 AT 1LNC MAINTAINED. COMFORTABLE. WILL CONTINUE TO MONITOR.
--- NOTE | 2018-09-22 06:21 | NUR ---
PATIENT SLEPT OFF AND ON DURING THE SHIFT, WAS TURNED AND REPOSITIONED, CHECKED END OF SHIFT FOR RESIDUAL WAS 20 ML REPLACED, FEEDING RATE AT 40 ML/HR, OTHER SETTING REMAINED SAME., TOLERATED FEEDING, KEPT HOB AT SEMI FOWLERS POSITION.SAFETY/FALL PRECAUTIONS MAINTAINED.WILL ENDORSE CONTINUITY OF CARE TO INCOMING NURSE.
[2018-09-22 06:26] VITALS: BP 152/64
[2018-09-22 06:39] LABS: CALCIUM 9.5 mg/dL (8.5-10.1); CARBON DIOXIDE 38.4 mmol/L (21-32); CHLORIDE SERUM 109 mmol/L (98-107); CREATININE SERUM 0.9 mg/dL (0.6-1.0); GLUCOSE SERUM 180 mg/dL (74-106); POTASSIUM SERUM 3.5 mmol/L (3.5-5.1); SODIUM SERUM 152 mmol/L (136-145)
--- NOTE | 2018-09-22 07:07 | NUR ---
PHYSICAL THERAPY DAILY NOTES CO-SIGN All documentation done by the Boot And Saddle Repair Person for 09/22/18 has been reviewed. I agree with the documentation. Reviewed/Co-Signed by: Anisha Mace PT Documentation Done by:GODFREY VALLES BRICK POINTER CO-SIGNED FOR 09/21/18
--- NOTE | 2018-09-22 07:22 | NUR ---
BEDSIDE HANDS OFF AND INTRODUCTION PERFORMED WITH INCOMING NURSE JANUSZ.
[2018-09-22 07:48] LABS: PLATELET COUNT 98 x10^3mcL (130-400); RED CELL DISTRIBUTION WIDTH 16.4 % (11.5-14.5)
--- NOTE | 2018-09-22 07:50 | NUR ---
PATIENT RESTING IN BED. NO ACUTE DISTRESS NOTED, PATIENT ON 5L OXYMIZER. PATIENT DENIES PAIN AT THIS TIME. IV TO L WRIST CDI, PATENT. NO S/S OF INFILTRATION. PEG TUBE FEEDING INFUSING AT 40ML/HR. NO RESIDUAL NOTED. KARIMI CATH DRAINING TO GRAVITY. FAMILY AT BEDSIDE. CALL LIGHT WITHIN REACH, BED IN LOW POSITION, WILL CONTINUE TO MONITOR.
[2018-09-22 09:32] VITALS: BP 134/54
[2018-09-22 12:46] VITALS: BP 126/63
[2018-09-22] MEDS ORDERED: AMERINET CHOICE1 PD3 IV (12:48)
--- NOTE | 2018-09-22 13:04 | NUR ---
PHYSICAL THERAPY NOTE ATTEMPTED FOR SCHEDULED PHYSCIAL THERAPY TREATMENT SESSION. PT IS CURRENTLY EXPERIENCING ABDOMINAL PAIN. WILL POSTPONE FOR NEXT SCHEDULED PHYSICAL THERAPY TREATMENT SESSION.
[2018-09-22 13:05] VITALS: BP 126/63
--- NOTE | 2018-09-22 13:30 | NUR ---
LAN WORRELL NOTIFIED DR FLOR PATIENT C/O PAIN 02/06 TO ABD, FAMILY WOULD LIKE SOMETHING MORE STRONGER. DR FLOR IS UNABLE TO GIVE STRONGER MEDICATION DUE TO ALLERY AND PATIENT BEING D/C TO SNF. DR FLOR AWARE PT PLT DECREASED TO 98 AND WBC INCREASED TO 16.3. DR FLOR PLACED NEW ORDERS FOR ANTIBIOTICS. WILL CARRY OUT AT THIS TIME.
--- NOTE | 2018-09-22 13:36 | NUR ---
Follow-up Nutrition Assessment- 219T/A JERRY ROSS URBANOTANA SHANNON FU HR Dx: PNA, Hypoxia Labs: (09/22) NA 152H, BG 180H, BUN 50H, WBC 16.3H Meds: Zofran, D50, Humulin, reglan Enteral Nutrition via PEG: Glucerna 1.2 @ 20ml/hr, goal 45ml/hr, FWF 50ml q 4h with prosource TF intake: (09/21-09/22)- 390 ml Weights: (09/13) 46.7 kg, (09/16) 49 kg, (09/17) 47.3 kg Skin: ecchymosis to LT hand, BUE discoloration Dejuan: 14 Edema: none Last BM: 09/17 Per Progress note (09/19): Patient's asthma is controlled with Advair and PRN albuterol and despite being complaint her symptoms worsened. She was started on IV steroids and antibiotics and her dyspnea is improved and has residual cough. Awaiting hospice eval. RDN Visit (09/22): Per PT's LAN Pascual, pt is tolerating TF without any residuals. No N/V/D/C at this time. RDN Visit (09/20): pt was not at bedside. Information was obtained from LAN Amaro. She said that pt recently got a new TF order (Glucerna 1.2 @ 20ml/hr, goal 45ml/hr) and will be initiated soon. Per FRUIT CANNER pt failed swallow eval. Estimated Nutritional Needs based on actual BW 47.3 kg: Energy: 2590-7546 kcal (25-30 kcal- geriatric maintenance) Protein: 47-57 g (1.0-1.2g/kg- geriatric maintenance and prevention of lean body mass losses) Fluid: 4506-9927 mL (1 mL/kcal or per MD order-for fluid balance and maintenance) Nutrition Diagnosis 1. Inadequate energy intake related to medical condition as evidenced previous NPO diet order and current TF regimen not initiated. (resolved) Intervention 1. Continue Glucerna 1.2 @ 45ml/hr. FWF 50 ml q 4hr. Goal rate provides 1300 kcal and 65 g protein. This meets 100% calorie and protein needs of the patient. Monitor/Evaluate Previous goal: Initiate Glucerna 1.2, goal@ 45ml/hr (met) Goal: TF intake at least 75% of estimated needs Monitor: TF intake/tolerance, Labs, GI function F/U in 2-3 days as high risk
[2018-09-22 14:07] LABS: BAND NEUTROPHIL 2 % (0-10); BASOPHIL 0 % (0-2); MONOCYTE 4 % (0-7); SEGMENTED NEUTROPHILS 92 % (37-75)
[2018-09-22 14:08] LABS: PLATELET MORPHOLOGY PLATELETS DECREASED
--- NOTE | 2018-09-22 14:49 | NUR ---
NOTIFIED DR FLOR ABOUT FAMILY CONCERNS WITH THE PATIENT, DR FLOR SAID HE WILL KEEP PATIENT OVERNIGHT FOR OBSERVATION. DR FLOR GAVE TELEPHONE ORDERS TO CANCEL PATIENT DISCHARGE TILL TOMORROW. WILL UPDATE PATIENTS FAMILY.
[2018-09-22 15:24] LABS: rbc morphology (normal/abnorm) NORMAL (NORMAL)
--- NOTE | 2018-09-22 15:39 | NUR ---
PHYSICAL THERAPY DAILY NOTES CO-SIGN All documentation done by the Jewelry Jobber for 09/22/18 has been reviewed. I agree with the documentation. Reviewed/Co-Signed by: Anisha Mace PT Documentation Done by:JULISSA SURESH [facility]
[2018-09-22 17:57] VITALS: BP 123/52
--- NOTE | 2018-09-22 18:00 | NUR ---
PATIENT RESTING IN BED, NO ACUTE CHANGES NOTED. PATIENT IS STABLE. PATIENT DENIES SOB, PATIENT ON 9L OXYMIZER. NEW IV INSERTED BY RN SURU TO LFA 22G, IV SITE CDI, IV SITE PATENT. FAMILY AT BEDSIDE, CALL LIGHT WITHIN REACH, BED IN LOW POSITION. WILL CONTINUE TO MONITOR AND ENDORSE REPORT TO NIGHT NURSE.
--- NOTE | 2018-09-22 19:50 | NUR ---
RECEIVED PT FROM DAY SHIFT RN. PT IS AA&O X2 TO PERSON AND PLACE. PT IS YORUBA SPEAKING. FAMILY IS CURRENTLY AT THE BEDSIDE. THERE ARE NO SIGNS OF CHEST PAIN OR SHORTNESS OF BREATH. PT HAS AN OXIMIZER IN PLACE CURRENTLY WITH 10L. TOLERATING WELL. NO USE OF ACCESSORY MUSCLES OR LABORED BREATHING ON ASSESSMENT. PT HAS AN OSTOMY NOTED WITH OSTOMY BAG IN PLACE CDI. PT PEG TUBE RUNNING GLUCERNA 1.2 AT 45CC/HR. LFA IV CLEAN DRY AND INTACT. SAFETY MEASURES IN PLACE. WILL CONTINUE TO MONITOR.
[2018-09-22 21:30] VITALS: BP 136/59
--- NOTE | 2018-09-23 00:16 | NUR ---
PT RESTING IN BED. REPOSITIONED WITH CONDUCTOR SLEEPING CAR. PT TOLERATED WELL. COUGHING NOTED. RT MADE AWARE FOR BREATHING TREATMENT.
[2018-09-23 06:06] VITALS: BP 143/71
--- NOTE | 2018-09-23 06:40 | NUR ---
PT SLEPT IN INTERVALS THROUGHOUT THE NIGHT. PT RESTING IN BED WITH FAMILY AT THE BEDSIDE. NO SIGNS OF RESPIRATORY DISTRESS OR CHEST PAIN. WILL ENDORSE TO DAY SHIFT RN.
--- NOTE | 2018-09-23 07:50 | NUR ---
PATIENT RESTING IN BED, PATIENT C/O OF SOB. WHEEZES NOTED ON EXPIRATION. RT NOTIFIE FOR BREATHING TREATMENT. PATIENT IS A/OX2, WITH PERIODS OF CONFUSION. COLOSTOMY NOTED TO LLQ, LAST BM ON 09/22/18 BROWN AND FORMED. KARIMI CATH DRAINING TO GRAVITY, YELLOW URINE NOTED. PATIENT HAS GENERALIZED WEAKNESS, MAX ASSIST WITH LEFT SHOULDER PRECAUTION. NS IV INFUSING TO LFA AT 10ML/HR, IV SITE CDI, NO REDNESS, SWELLING OR PAIN NOTED. CALL LIGHT WITHIN REACH, BED IN LOW POSITION, WILL CONTINUE TO MONITOR.
--- NOTE | 2018-09-23 08:45 | NUR ---
DR ANGUIANO AT BEDSIDE, SPOKE WITH PATIENTS DAUGTHERS ABOUT PATIENTS CONDITION AND PLAN OF CARE. PATIENT FAMILY HAD CONCERNS WITH PATIENT NOT RECEIVING ADEQUATE PAIN MEDICATION. DR ANGUIANO EXPLAINED THE RISKS OF GIVING HER HIGHER DOSE MEDICATIONS. PATIENT FAMILY UNDERSTAND RISKS, DR ANGUIANO WILL OREDER TYLENOL #[address] ANGUIANO AWARE THERE WERE NO NEW LABS THIS MORNING. DR ATKINS WILL ORDERS NEW LABS AND D/C 1/2 NS KCL 20MEQ AT 30ML/HR.
--- NOTE | 2018-09-23 09:24 | NUR ---
NOTIFIED BY PHARMACY ABOUT NEW MEDICATION ORDER TYLENOL 3 AND POSSIBLE ALLERGIES TO CODEINE. SPOKE WITH PATIENT FAMILY ABOUT ALLERIES TO MORPHINE, PATIENT FAMILY STATED PATIENT WOULD GET DIZZY WITH NAUSEA/VOMITING. EDUCATED TO THE PATIENT FAMILY THAT THESE ARE COMMON SIDE EFFECTS THAT A PATIENT COULD EXPERIENCE. PATIENT FAMILY STATES THERE WERE NO SEVERE REACTIONS. PATIENT WAS ABLE TO TAKE NORCO WITH NO ISSUES IN THE PAST. PHARMACY AWARE AND WILL CONTINUE NEW MEDICATION ORDER.
[2018-09-23 09:26] LABS: CALCIUM 9.1 mg/dL (8.5-10.1); CARBON DIOXIDE 36.2 mmol/L (21-32); CHLORIDE SERUM 105 mmol/L (98-107); CREATININE SERUM 0.9 mg/dL (0.6-1.0); GLUCOSE SERUM 104 mg/dL (74-106); POTASSIUM SERUM 4.1 mmol/L (3.5-5.1); SODIUM SERUM 145 mmol/L (136-145)
[2018-09-23 09:51] VITALS: BP 107/62
[2018-09-23 10:38] LABS: PLATELET COUNT 97 x10^3mcL (130-400); RED CELL DISTRIBUTION WIDTH 16.6 % (11.5-14.5)
--- NOTE | 2018-09-23 10:40 | NUR ---
PATIENT WAS SITTING UP AT BEDSIDE. PATIENT WAS FEELING TIRED AND WANTED TO GO BACK TO BED. PATIENT TRANSFERRED BACK TO BED BY PHYSICAL THERAPY. FAMILY AT BEDSIDE, CALL LIGHT WITHIN REACH, BED IN LOW POSITON. WILL CONTINUE TO MONITOR PATIENT.
--- NOTE | 2018-09-23 10:50 | NUR ---
DR ANGUIANO AWARE THAT GLUCERNA 1.2 WILL NOT BE AVAILABLE TILL TUESDAY, DR ANGUIANO GAVE TELEPHONE/VERBAL ORDERS TO PLACE A NEW TUBE FEEDING DIET EQUIVALENT TO PATIENTS CURRENT TUBE FEEDING DIET. NOTIFIED REMEDIOS FROM DIETARY. WILL FOLLOW UP WITH DIETARY.
--- NOTE | 2018-09-23 12:15 | NUR ---
RESPIRATORY THERPIST AT BEDSIDE FOR BREATHING TREATMENT. FAMILY AT BEDSIDE. PATIENT DENIES PAIN. CALL LIGHT WITHIN REACH, BED IN LOW POSITION, WILL CONTINUE TO MONITOR.
[2018-09-23 12:52] VITALS: BP 129/79
--- NOTE | 2018-09-23 13:15 | NUR ---
Called Caesar to check on status of the [facility] appeal. The case has been assigned to a physican, but there is no decison at this point. Instructed to call back tomorrow.
[2018-09-23 15:14] LABS: BAND NEUTROPHIL 0 % (0-10); BASOPHIL 0 % (0-2); MONOCYTE 6 % (0-7); PLATELET MORPHOLOGY PLATELETS DECREASED; SEGMENTED NEUTROPHILS 87 % (37-75)
[2018-09-23 15:15] LABS: rbc morphology (normal/abnorm) ABNORMAL (NORMAL)
[2018-09-23 17:09] VITALS: BP 133/81
--- NOTE | 2018-09-23 17:43 | NUR ---
PAITENT WAS C/O PAIN TO ABDOMEN, MEDICATED PATIENT WITH TYLENOL #3 PER PROTOCOL (SEE EMAR). REPOSITIONED PATIENT FOR COMFORT. FAMILY AT BEDSIDE. NO ACUTE CHANGES NOTED THROUGH OUT SHIFT, PATIENT IS STABLE. KARIMI CATH DRAINING TO GRAVITY. IV TO LFA SALINE LOCK, IV SITE CDI, NO REDNESS SWELLING OR PAIN NOTED. CALL LIGHT WITHIN REACH, BED IN LOW POSITION. WILL CONTINUE TO MONITOR AND ENDORSE REPORT TO NIGHT NURSE.
--- NOTE | 2018-09-23 19:35 | NUR ---
RECEIVED PT RESTING IN BED, FAMILY AT BEDSIDE. AOX2, DENIES WALDEN/DIZZINESS. TELE #5 SR DENIES CP. PULSES PALPABLE BILAT, DENIES NUMBNESS/TINGLING IN FEET. RESP EVEN AND UNLABORED ON 5L OXYMIZER, DENIES SOB. DIM BILAT BASES, EXP WHEEZE NOTED TO UPPER LOBES. PT WITH G TUBE IN PLACE, RECEIVING TUEB FEEDING VITAL AF @ 45ML/HR. NO RESIDUAL NOTED. PT WITH KARIMI CATH DRAINING ROE YELLOW URINE TO GRAVITY. DENIES DYSURIA. GENERALIZED WEAKNESS MAX ASSIST. PT ABLE TO FOLLOW COMMMANDS IN [place]. PT WITH ECCHYMOSIS TO LEFT HAND, DENIES PAIN. MICHAEL. OPTIFORM TO SACRAL AREA. WILL ENSURE PT REMAINS CLEAN AND DRY. IV SITE TO LFA PATENT, SALINE LOCKED AT THIS TIME. ALL COMFORT AND SAFETY MEASURES PROVIDED FOR, CALL LIGHT WITHIN REAC, BED IN LOWEST POSITION, WILL CONTINUE TO MONITOR.
--- NOTE | 2018-09-23 20:30 | NUR ---
PT FAMILY REQUESTING COUGH MEDICINE, SPOKE TO DR YOUSSEF AND RECEIVED TELEPHONE ORDERS FOR ROBUTUSSION 10ML Q6H VIA G TUBE PRN COUGH, WILL INPUT ORDERS NOW. ALL QUESTIONS AND CONCERNS ADDRESSED, WILL CONTINUE TO MONITOR.
[2018-09-23 20:42] VITALS: BP 122/52
--- NOTE | 2018-09-24 05:05 | NUR ---
PT RESTED IN INTERVALS DURING SHIFT, NO ACUTE CHANGES OCCURRING OVERNIGHT. PT TOLERATING TUBE FEEDINGS WELL, VERY SCANT RESIDUAL NOTED WHICH WAS RETURNED. PT REMAINS ON 5L OXYMIZER, DENIES SOB. KARIMI CTAH CONTINUING TO DRAIN YELLOW URINE. PT WITH COLOSTOMY BAG TO MID ABD, WILL EMPTY NEEDED. PT TOLERATING ANTIBIOTICS WELL. PT ABLE TO OBEY SIMPLE COMMANDS, ALL COMFORT AND SAFETY MEASURES PROVIDED FOR, CALL LIGHT WIHTIN REACH, BED IN LOWEST POSITION, WILL CONTINUE TO MONITOR.
[2018-09-24 05:31] VITALS: BP 122/56
[2018-09-24 06:30] LABS: CALCIUM 8.7 mg/dL (8.5-10.1); CARBON DIOXIDE 36.8 mmol/L (21-32); CHLORIDE SERUM 102 mmol/L (98-107); CREATININE SERUM 0.9 mg/dL (0.6-1.0); GLUCOSE SERUM 171 mg/dL (74-106); POTASSIUM SERUM 4.2 mmol/L (3.5-5.1); SODIUM SERUM 141 mmol/L (136-145)
[2018-09-24 07:00] LABS: BASOPHIL % 0 % (0-2); PLATELET COUNT 106 x10^3mcL (130-400); RED CELL DISTRIBUTION WIDTH 16.6 % (11.5-14.5)
--- NOTE | 2018-09-24 07:36 | NUR ---
ENDORSED ALL CARE TO DAYSHIFT NURSE, NO ACUTE DISTRESS NOTED. ALL QUESTIONS AND CONCERNS ADDRESSED, CALL LIGHT WITHIN REACH, BED IN LOWEST POSITION.
--- NOTE | 2018-09-24 08:00 | NUR ---
DROWSY, AROUSABLE. CONFUSED. ARMENIAN SPEAKING. TELE#5, SR; HR = 98. BREATHING SOUND DIMINISHED MARNI BASES. O2 SAT 94% ON 5L VIA OXYMIZER. ABD ROUND. G-T SITE TO R ABD W/ DRSG INTACT. ON G T FEEDING W/ VITAL AF 45CC/HR. RESIDUAL 0 TO 25 CC, REPLACED. COLOSTOMY TO LLQ, BAG INTACT. KARIMI CATH PATNET W/ JESSENIA LANGFORD EOUTPUT. IVHL'D TO LFA. ON AIR MATTRESS. SCD APPLIED, WOULD REPOSITION Q2H. FAMILY AT BED SIDE. NO S/S OF PAIN NOW. SAFETY PRECAUTION IN PLACE.
[2018-09-24 09:42] VITALS: BP 131/53
[2018-09-24 12:32] VITALS: BP 147/63
--- NOTE | 2018-09-24 13:21 | NUR ---
Follow-up Nutrition Assessment Dx: PNA, Hypoxia Labs: (09/24) Na 141, K 4.2, BG 171H, BUN 32H, Cr 0.9 (both trending down), WBC 14.2H, H/H 11.3L/34L BG readings (09/22-09/24): All readings <180 mg/dL with insulin coverage provided PRN. Meds: D50%, Humulin, Protonix, Reglan, Robitussin, Tylenol, Zofran, Zosyn Current Nutrition Support: G-Tube with Glucerna 1.2 @ goal rate 45 mL/Hr with 50 mL FWF Q4H. TF intake: (09/24) 990 mL (09/23) 390 mL (09/22) 240 mL; mostly <75% estimated needs I and O: (09/24) 2110/1230 +790 (09/23) 600/1000 -400 (09/22) 1340/800 +540. Pt. mostly in positive fluid balance; weight fluctuations throughout hospitalization is expected. Residuals TF: Minimal <10 mL per RN Weights: (09/17) 47 kg (09/16) 49 kg (09/13) 46.7 kg Skin: Intact Dejuan: 15 Edema: None Last BM: x 1 (09/24) Pt. with no acute events or changes per provider progress notes. Began IV steriod infusions, which may be an additional contributing to her weight gain since admission. ST swallow evaluation was conducted on 09/19 with recommendations for alternative form of nutrition support, as pt. was unable to safely swallow. Continues with Glucerna 1.2 running at goal rate of 45 mL/Hr with 100 mL FWF Q3H. Tolerating TF well without s/s GI distress and minimal residuals <10 mL per RN. No major changes since previous assessment. Estimated Nutritional Needs based on acutal body weight 47.3 kg: No changes from previous assessment Energy: 3957-3131 kcal (25-30 kcal/kg-geriatric maintenance) Protein: 47-57 g (1.0-1.2 g/kg-geriatric maintenance, prevention of lean body mass loss) Fluid: 1941-3961 mL (1 mL/kcal-for fluid balance and maintenance) Nutrition Diagnosis 1. Inadequate EN intake r/t medical conditions AEB TF infusions meeting <75% estimated needs. (ongoing) Intervention/RD recommendations 1. Continue current TF regimen Glucerna 1.2 @ goal rate 45 mL/Hr with 100 mL FWF Q3H, or as ordered by provider. Goal rate provides 1300 kcal and 65 g protein, which meets >100% estimated calorie and protein needs. Monitor/Evaluate Previous goal: TF at least 75% of estimated needs (ongoing-improving) Goal: TF at least 75% of estimated needs Monitor: TF intake, TF tolerance, Labs, GI function, weights F/U in 2-3 days as high risk (09/26-09/27)
--- NOTE | 2018-09-24 15:24 | NUR ---
Just recieved a call from [facility].The case has been reviwed by the [facility] physcian and the appeal was not granted. The pt. is OK for discharge and the liability starts tomorrow at 12:00 noon. 2S charge nurse notified.
--- NOTE | 2018-09-24 15:29 | NUR ---
SPOKE WITH DR. ANGUIANO AND INFORMED HIM PER SUPERVISOR FILTRATION TESSY- THE APPEAL WAS NOT GRANTED. PER DR. ANGUIANO PATIENT IS OKAY TO BE DISCHARGED TOMOMORROW. ALL QUESTIONS AND CONCERNS ADDRESSED. WILL NOTIFY FAMILY. PRIMARY NURSE AWARE.
--- NOTE | 2018-09-24 18:00 | NUR ---
COLOSTOMY BAG INTACT. NO LEAKING. PER FAMILY REQUEST TO CHANGED COLOSTOMY BAG. STOMA BEEF RED. SKIN AROUND STOMA INTACT, NO REDNESS. TOTAL 450 GM OF BROWN, SOFT STOOL COLLECTED. KARIMI PATENT W/ 400CC OF YELLOW URINE MEASURED. ENDORSED CARE TO [facility] NURSE.
[2018-09-24 18:21] VITALS: BP 165/70
[2018-09-24 21:19] VITALS: BP 144/54
[2018-09-25] VITALS (7 sets, daily range): BP systolic 115–139; BP diastolic 45–64
--- NOTE | 2018-09-25 00:06 | NUR ---
RECEIVED PT RESTING IN BED, FAMILY AT BEDSIDE. AOX1, DENIES WALDEN/DIZZINESS. TEL #5 ST 102 DENIES CP. PULSES PALPABLE BILAT, DENIES NUMBNESS/TINGLING IN FEET. RESP EVEN AND UNLABORED ON 5L OXYMIZER, DENIES SOB. DIM BILAT BASES, EXP WHEEZE NOTED TO UPPER LOBES. PT WITH G TUBE IN PLACE, RECEIVING TUBE FEEDING VITAL AF @ 45ML/HR. NO RESIDUAL NOTED. PT WITH KARIMI CATH DRAINING ROE YELLOW URINE TO GRAVITY. DENIES DYSURIA. PT WITH COLOSTOMY BAG TO LLQ, DRAINING LIGHT BROWN SEMILIQUID STOOL. SKIN CDI. STOMA RED AND MOIST. GENERALIZED WEAKNESS MAX ASSIST. PT ABLE TO FOLLOW COMMMANDS IN [place]. PT WITH ECCHYMOSIS TO LEFT HAND AND POSTERIOR RT DELTOID, DENIES PAIN AT SITES. CORRECTIONAL MEDICINE PHYSICIAN DENIES PAIN. MICHAEL. OPTIFORM TO SACRAL AREA. WILL ENSURE PT REMAINS CLEAN AND DRY. IV SITE TO LFA PATENT, SALINE LOCKED AT THIS TIME. ALL COMFORT AND SAFETY MEASURES PROVIDED FOR, CALL LIGHT WITHIN REAC, BED IN LOWEST POSITION, WILL CONTINUE TO MONITOR.
--- NOTE | 2018-09-25 00:30 | NUR ---
UPON ASSESSMENT OF PT, PT HEARD HOLLARING IN [place], ASKED PT IN [place] IF SHE HAD PAIN, PT SHOOK HER HEAD NO. DAUGHTER AT BEDSIDE ASKED PT SEVERAL TIMES IF SHE HAS PAIN OR NEEDS PAIN MEDS, PT VERBALIZED NO. ALL COMFORT AND SAFETY MEASURES PROVIDED FOR, CALL LIGHT WITHIN REACH, BED IN LOWEST POSITION, WILL CONTINUE TO MONITOR.
--- NOTE | 2018-09-25 03:45 | NUR ---
PT FAMILY MEMBER CAME TO NURSING STATION TO ASK FOR HER MOTHER BP TO BE TAKEN. VS STABLE= 137/58 (84), HR 107, 93% ON 5L OXIMIZER, RR= 20. PT DENIES SOB/PAIN. FAMILY AT BEDSIDE VERY NERVOUS WHY PT HAS BEEN SLEEPING SO MUCH. EDUCATED PT THAT NO PAIN MEDICATION HAS BEEN GIVEN DURING THIS SHIFT, PT WAS MEDICATED LAST WITH TYLENOL #3 @ 1735 AND PERHAPS THE MEDICATION IS STILL NOT FULLY METABOLIZED OUT OF HER SYSTEM WHICH MAY CONTRIBUTE TO THE DROWSINESS. PT RESPONDS TO VERBAL STIMULI. WILL CONTINUE TO MONITOR CLOSELY.
--- NOTE | 2018-09-25 05:15 | NUR ---
PT RESTED IN INTERVALS DURING SHIFT, NO ACUTE CHANGES OCCURRING OVERNIGHT. PT FAMILY MEMBERS EXPRESSING CONCERN D/T PT VERY DROWSY ALL DAY. HELD OFF ON PAIN MEDICATION TO ALLOW PT TO WAKE UP MORE. WHEN ASKED, PT DENIES PAIN, PT DENIES SOB. PT O2 SAT= 93% ON 5L OXYMIZER. COLOSTOMY BAG CONTINUING TO DRAIN LIQUID BROWN STOOL AND KARIMI CATH DRAINING YELLOW URINE. G TUBE REMAINS WITH TUBE FEEDING VITAL AF AT 45ML/HR. IV SITE REMAINS PATENT TO LFA, SALINE LOCKED. PT TOLERATING ANTIBIOTICS WELL. NO REDNESS, SWELLING OR PAIN NOTED AT IV SITE. ALL COMFORT AND SAFETY MEASURES PROVIDED FOR, CALL LIGHT WITHIN REACH, BED IN LOWEST POSITION, WILL CONTINUE TO MONITOR.
[2018-09-25 06:30] LABS: ALKALINE PHOSPHATASE 95 U/L (46-116); ALT/SGPT 39 U/L (14-59); AST/SGOT 24 U/L (15-37); BILIRUBIN TOTAL 0.5 mg/dL (0.20-1.00); CALCIUM 8.9 mg/dL (8.5-10.1); CARBON DIOXIDE 32.9 mmol/L (21-32); CHLORIDE SERUM 102 mmol/L (98-107); CREATININE SERUM 0.9 mg/dL (0.6-1.0); GLUCOSE SERUM 194 mg/dL (74-106); POTASSIUM SERUM 4.2 mmol/L (3.5-5.1); SODIUM SERUM 140 mmol/L (136-145)
[2018-09-25 06:34] LABS: PLATELET COUNT 119 x10^3mcL (130-400); RED CELL DISTRIBUTION WIDTH 16.9 % (11.5-14.5)
[2018-09-25 06:55] LABS: ALBUMIN 1.8 g/dL (3.4-5.0); TOTAL PROTEIN, SERUM 5.7 g/dL (6.4-8.2)
--- NOTE | 2018-09-25 07:25 | NUR ---
RECEIVED PT FROM EUGENE PEPE. PT RESTING IN BED WITH BOTH EYES CLOSED. NO S/S OF ACUTE DISTRESS. NO S/S OF PAIN. NSR ON TELE, HR 97. NO S/S OF ACUTE RESPIRATORY DISTRESS ON 5L OXYMIZER. TUBE FEEDING IN TACT, RUNNING AT 45ML/HR. COLOSTOMY IN TACT TO LLQ ABD. AIR MATTRESS IN PLACE. IV WNL TO LFA, SALINE LOCKED. FALL PREC IN PLACE. DAUGHTER, NITA, AT BEDSIDE. INSTRUCTED TO USE CALL LIGHT TO CALL FOR ASSISTANCE PRN. VERBALIZED UNDERSTANDING. WILL CONT. TO MONITOR.
--- NOTE | 2018-09-25 07:47 | NUR ---
ENDORSED ALL CARE TO DAYSHIFT NURSE, NO ACUTE DISTRESS NOTED. ALL QUESTIONS AND CONCERNS ADDRESSED. ALL COMFORT AND SAFETY MEASURES PROVIDED FOR, CALL LIGHT WITHIN REACH, BED IN LOWEST POSITION.
--- NOTE | 2018-09-25 08:35 | NUR ---
DR. ANGUIANO AT BEDSIDE DISCUSSING POC WITH WITH DAUGHTER NITA, COOK ICE [employer] PHONE USED, ID #[id number], NAME NATHALIE. FAMILY QUESTIONS/CONCERNED DISCUSSED WITH PHYSICIAN.
[2018-09-25 09:47] LABS: BAND NEUTROPHIL 0 % (0-10); BASOPHIL 0 % (0-2); MONOCYTE 2 % (0-7); PLATELET MORPHOLOGY PLATELETS DECREASED; SEGMENTED NEUTROPHILS 94 % (37-75)
[2018-09-25 09:48] LABS: rbc morphology (normal/abnorm) ABNORMAL (NORMAL)
--- NOTE | 2018-09-25 10:37 | NUR ---
TUBE FEEDING CHANGED, GLUCERNA 1.2 AT 45ML/HR WITH 300ML H2O FLUSH Q 8 HRS, TUBING CHANGED. WATER CHANGED. 0 RESIDUAL OUTPUT NOTED. TURNED PATIENT TO LEFT SIDE. MILD BLANCHABLE ERYTHEMA NOTED TO BACK/SACRUM, HYDRAGUARD APPLIED. PT ON AIR MATTRESS. NO SOB NOTED ON 5 L OXYMIZER. NO S/S OF ACUTE DISTRESS. NO COMPLAINT OF PAIN. COLOSTOMY INTACT. KARIMI INTACT. HOB ELEVATED >45 DEGREES. FAMILY AT BEDSIDE. BED IN LOW POSITION. CALL LIGHT WITHIN REACH. WILL CONT. TO MONITOR.
--- NOTE | 2018-09-25 10:47 | NUR ---
P.T. NOTES AFTER MULTIPLE ATTEMPTS, PATIENT TREATMENT WILL BE PUT ON HOLD PER CHARGE NURSE, WAITING FOR DR VISIT AND POC.
--- NOTE | 2018-09-25 12:06 | NUR ---
PT RESTING IN BED WITH BOTH EYES CLOSED. NO S/S OF ACUTE DISTRESS. NO SOB ON 5L OXYMIZER. TUBE FEEDING RUNNING, PATENT. <5 CC RESIDUAL OUTPUT. COLOSTOMY IN TACT TO LLQ ABD. IV WNL TO LFA, NO REDNESS, NO SWELLING, NO INFILTRATION. PATENT. NO CHEST PAIN. CALM/COOPERATIVE. BLE ELEVATED WITH PILLOWS. FAMILY AT BEDSIDE. BED IN LOW POSITION. CALL LIGHT WITHIN REACH. AIR MATTRESS IN PLACE. WILL CONT. TO MONITOR.
--- NOTE | 2018-09-25 13:38 | NUR ---
DISCUSSED PLAN OF CARE WITH FAMILY AT BEDSIDE, ALEKSANDRA GUAN AWARE. MULTIPLE ATTEMPTS TO CONTACT ALEKSANDRA WATSON FOR TRANSFER VIA TELEPHONE. NO ANSWER, NUMBER PROVIDED BY FAMILY MEMBER AT BEDSIDE. PER DAUGHTER FREIDA CONTACT INFO IS [phone], GRANDDAUGHTER ANSWERED. DISCUSSED NEED FOR FAMILY CONSENT FOR DISCHARGE TO [facility]. GRANDDAUGHTER VERBALIZED UNDERSTANDING. WAITING FOR CALLBACK FROM NITA ENGLANDA.
--- NOTE | 2018-09-25 16:26 | NUR ---
PHYSICAL THERAPY DAILY NOTES CO-SIGN All documentation done by the Engraver Jewelry for 09/25/18 has been reviewed. I agree with the documentation. Reviewed/Co-Signed by: Anisha Mace PT Documentation Done by:GODFREY VALLES PTA
--- NOTE | 2018-09-25 16:41 | NUR ---
PHYSICAL THERAPY DAILY NOTES CO-SIGN All documentation done by the Power Line Lineman for 09/25/18 has been reviewed. I agree with the documentation. Reviewed/Co-Signed by: Alberto Selby PT Documentation Done by:ALECIA REEDER MUTUEL MACHINE OPERATOR FOR 09/23/2018
--- NOTE | 2018-09-25 18:16 | NUR ---
KARIMI OUTPUT 650, URINE CLOUDY/YELLOW. COLOSTOMY EMPTIED, OUTPUT FOR TODAY. 240CC. G TUBE IN PLACE TO LLQ ABD. TUBE FEEDING RUNNING AT 45CC/HR. IV WNL TO LFA, NO REDNESS, NO SWELLING, NO INFILTRATION. PT REPOSITIONED TO LEFT SIDE. OPTIFOAM IN TACT TO SACRUM. NO S/S OF ACUTE DISTRESS. AA/OX1. CALM/COOPERATIVE. BLE ELEVATED. SCDS IN PLACE. BED IN LOW POSITION. CALL LIGHT WITHIN REACH. AIR MATTRESS IN PLACE. FAMILY AT BEDSIDE. WILL ENDORSE TO ONCOMING SHIFT.
--- NOTE | 2018-09-25 19:41 | NUR ---
PT SEEN, ASLEEP AND APPEARS COMFORTABLE, AAO X 1 WITH SW[place]ISH SPEAKING ONLY WHILE AWAKE, BREATHING EVEN AND UNLABORED, LUNG SOUNDS FINE&COARSE CRACKLES AND RHONCHI, ON OXYMIZER @ 5 LITERS, NO RESP DISTRESS OR SOB NOTED, PULSES PALPABLE, NO EDEMA NOTED, GENERALIZED WEAKNESS, TOTAL CARE, ON AIR MATTRESS, ABD SOFT AND FLAT WITH ACTIVE BS, G-TUBE FEEDING WITH GLUCERNA 1.2 @ 45 ML/HR, CLARIFIED WITH DR FLOR ABOUT FWF, PER DR FLOR FWF 100 ML Q3HRS, ORDER ENETERED AND CARRIED OUT, ON KARIMI VIA GRAVITY DRAINING YELLOW URINE, ERYTHEMA TO BUTTOCKS AND OPTIFORM IN PLACE, NO DISTRESS NOTED, WILL KEEP TO MONITOR.
[2018-09-26] VITALS (7 sets, daily range): BP systolic 125–173; BP diastolic 58–79
--- NOTE | 2018-09-26 04:50 | NUR ---
FOUND PT WAS DE-SATS WITH OXYMIZER 5 LITERS, SPO2 WAS ONLY 82%, INCREASED OZYMIZER TO 10 LITERS AND ABLE TO MAINTAIN SPO2 > 95%.
[2018-09-26 06:18] LABS: BASOPHIL % 0.1 % (0-2); PLATELET COUNT 144 x10^3mcL (130-400)
--- NOTE | 2018-09-26 06:20 | NUR ---
PT ASLEEP AFTER MEDICATED WITH TYLENOL#3 FOR SHOULDER PAIN, PT ABLE TO MAINTAIN SPO2 > 92% WITH OXYMIZER 8 LITERS, TOLERATING WELL WITH TF GLUCERNA 1.2 @ 45 ML/HR, HOB AND ASP PRECAUTION IN PLACE, WILL CONTINUE TO MONITOR.
[2018-09-26 06:35] LABS: RED CELL DISTRIBUTION WIDTH 16.7 % (11.5-14.5)
[2018-09-26 06:41] LABS: CALCIUM 9.3 mg/dL (8.5-10.1); CARBON DIOXIDE 33.7 mmol/L (21-32); CHLORIDE SERUM 106 mmol/L (98-107); GLUCOSE SERUM 148 mg/dL (74-106); POTASSIUM SERUM 3.7 mmol/L (3.5-5.1); SODIUM SERUM 145 mmol/L (136-145)
--- NOTE | 2018-09-26 06:50 | NUR ---
MORNING CARE GIVEN. NEW COLOSTOMY BAG APPLIED.
--- NOTE | 2018-09-26 07:05 | NUR ---
RECEIVED PT FROM HIGH SCHOOL COMPUTER SCIENCE TEACHER. PT ASLEEP AT THIS TIME BUT AROUSABLE. PT ON TELE # 5. NO CHEST PAIN NOTED AT THIS TIME. PT ON OXIMIZER AT 8L, NO RESP DISTRESS NOTED. RONCHI NOTED UPON AUSCULTATION. PERIPHERAL PULSES PALPABLE, NO EDEMA NOTED. IV ACCESS LFA, C/D/I, SALINE LOCKED. PT NOTED TO HAVE GENERALIZED WEAKNESS. ACTIVE BOWEL SOUNDS NOTED. PT HAS LLQ COLOSTOMY AND FOLY CATHETER WITH CLEAR YELLOW URINE DRAINING. NO ACUTE DISTRESS OR DISCOMFORT NOTED AT THIS TIME. FAMILY AT BEDSIDE. SAFETY MEASURES IN PLACE, BED LOW AND LOCKED. CALL LIGHT WITHIN REACH.
--- NOTE | 2018-09-26 07:09 | NUR ---
BEDSIDE HANDOFF REPORT DONE WITH PATRICIO-RN, ALL QUESTIONS ANSWERED AND CONCERNS ADDRESSED.
--- NOTE | 2018-09-26 09:00 | NUR ---
PT WITH GTUBE, NO GASTRIC RESIDUAL NOTED AT THIS TIME. FAMILY AT BEDSIDE.
--- NOTE | 2018-09-26 10:24 | NUR ---
PT OXIMIZER LOWERED TO 4L BY RESPIRATORY THERAPIST. PT TOLERATING 4L O2 SAT 93% AT THIS TIME. BREATHING EVEN AND UNLABORED. WILL CONTINUE TO MONITOR.
--- NOTE | 2018-09-26 11:00 | NUR ---
P.T. NOTES UNABLE TO SEE PATIENT FOR P.T., PER FAMILY AND NURSING PATIENT WILL BE D/C TODAY.
--- NOTE | 2018-09-26 11:22 | NUR ---
Follow-up Nutrition Assessment- 219T/A BEATRICE EPPERSONVITA FU HR Dx: PNA, Hypoxia Labs: (09/26) BG 148H, BUN 30H, WBC 13.6H Meds: Zofran, D50, Humulin, reglan Enteral Nutrition via PEG: Glucerna 1.2 @ 20ml/hr, goal 45ml/hr, FWF 100ml Q3H with prosource (1 pack BID) TF intake: (09/25-09/26) - 1035 ml Weights: (09/13) 46.7 kg, (09/16) 49 kg, (09/17) 47.3 kg Skin: ecchymosis to LT hand and RUE Dejuan: 15 Edema: none Last BM: 09/24 RDN Visit (09/26): Spoke with pt's RN Adriana. She said that Pt continues with Glucerna 1.2 running at goal rate of 45 ml/hr with 100 ml FWF Q 3H. Pt is tolerating TF well without s/s GI distress and no residuals. No major changes since previous assessment. Pt will be D/C to SNF per progress note on 09/26. Estimated Nutritional Needs based on actual BW 47.3 kg: Energy: 4502-4732 kcal (25-30 kcal- geriatric maintenance) Protein: 47-57 g (1.0-1.2g/kg- geriatric maintenance and prevention of lean body mass losses) Fluid: 1432-7596 mL (1 mL/kcal or per MD order-for fluid balance and maintenance) Nutrition Diagnosis 1. Inadequate energy intake related to medical condition as evidenced previous NPO diet order and current TF regimen not initiated. (resolved) Intervention 1. Continue Glucerna 1.2 @ 45ml/hr. FWF 100 ml Q3H. Goal rate provides 1300 kcal and 65 g protein. This meets 100% calorie and protein needs of the patient. Monitor/Evaluate Previous goal: Initiate Glucerna 1.2, goal@ 45ml/hr (met) Goal: TF intake at least 75% of estimated needs Monitor: TF intake/tolerance, Labs, GI function F/U in 2-3 days as high risk 5/-09/29
--- NOTE | 2018-09-26 11:42 | NUR ---
PT REPOSITIONED FOR PHOTOGRAPHIC DOCUMENTATION, PT NOTED TO BE IN DISTRESS. PT FAMILY MEMBERS ASKING FOR PAIN MEDICINE. TYLENOL 3 ADMINISTERED VIA GTUBE (SEE EMAR) NO GASTRIC RESIDUAL NOTED. HOB AT 35 DEGREES. O2 SAT 90-91% ON 5L OXIMIZER AT THIS TIME. BLOOD PRESSURE ELEVATED 173/67. WILL REASSESS IN 45 MINUTES.
--- NOTE | 2018-09-26 12:18 | NUR ---
PT BLOOD PRESSURE 139/61 (118) HR 91. RESPIRATORY THERAPY AT BEDSIDE GIVING BREATHING TREATMENT. PT O2 91 ON 5 LITERS OXIMIZER. WILL CONTINUE TO MONITOR.
--- NOTE | 2018-09-26 12:30 | NUR ---
SPOKE TO DR ANGUIANO REGARDING PT CONDITION. AWARE OF PT DESATURATING TO 85 AFTER MOVEMENT, ELEVATED BLOOD PRESSURE. PER DR. ANGUIANO OK TO PUT DISCHARGE ON HOLD AT THIS TIME TO OBSERVE PATIENT CONDITION. RESP THERAPY REPORTS PT O2 96% ON 5L OXIMIZER AFTER BREATHING TREATMENT. WILL CONTINUE TO MONITOR. SAFETY MAINTAINED. HOB AT 45 DEGREES. FAMILY AT BEDSIDE.
--- NOTE | 2018-09-26 13:30 | NUR ---
PT RESTING COMFORTABLY WITH NO RESP DISTRESS NOTED AT THIS TIME. PT RESPONDS WHEN SPOKEN TO. FAMILY AT BEDSIDE. SAFETY MEASURES MAINTAINED.
--- NOTE | 2018-09-26 14:11 | NUR ---
DUE MEDS ADMINISTERED ORDERED THROUGH [facility]. NO GASTRIC RESIDUAL NOTED AT THIS TIME. FEEDING CHANGED AT THIS TIME. HOB AT 35 DEGREES. PT ON 5L OXIMIZER WITH O2 SAT AT 93% AT THIS TIME. PT RESTING WITH FAMILY AT BEDSIDE. NO ACUTE DISTRESS AT THIS TIME.
--- NOTE | 2018-09-26 16:12 | NUR ---
PHYSICAL THERAPY DAILY NOTES CO-SIGN All documentation done by the I[employer] Account Manager for 09/26/18 has been reviewed. I agree with the documentation. Reviewed/Co-Signed by: Anisha Mace PT Documentation Done by:GODFREY VALLES PTA
--- NOTE | 2018-09-26 17:42 | NUR ---
PT NOTED TO HAVE RESP DISTRESS, O2 SAT 87% OXIMIZER INCREASED TO 8 L AT THIS TIME. PER RT PT JUST HAD BREATHING TREATMENT. PT CLEANED AND REPOSITIONED. NEW COLOSTOMY BAG APPLIED. PT O2 SAT 93% ON 8 LITERS. PT NOTED TO HAVE SOME DISTRESS, FAMILY SAYS PT IN PAIN. TYLENOL 3 ADMINISTERED VIA [employer]U[facility] (SEE EMAR). 100 ML OF GASTRIC RESIDUAL NOTED AT THIS TIME. FEEDING HELD FOR AN HOUR. WILL CONTINUE TO MONITOR. SAFETY MEASURES MAINTAINED.
--- NOTE | 2018-09-26 18:09 | NUR ---
GASTRIC RESIDUAL CHECKED. 55ML NOTED AND RETURNED TO STOMACH. FEEDING HELD FOR 30 MORE MINUTES. PT RESTING COMFORTABLY AT THIS TIME. FAMILY AT BEDSIDE. SAFETY MAINTAINED.
--- NOTE | 2018-09-26 18:43 | NUR ---
PT RESTING WITH NO ACUTE DISTRESS NOTED AT THIS TIME. ALL NEEDS TENDED TO THROUGHOUT SHIFT. FAMILY AT BEDSIDE. WILL CONTINUE TO MONITOR AND ENDORSE CARE TO ONSITE HEALTH COACH.
--- NOTE | 2018-09-26 19:29 | NUR ---
RECEIVED PT IN BED ASLEEP,LETHARGIC.RESPOND TO PAINFUL STIMULI.LUNG SOUND FINE CRACKLES/RONCHI.CHECKED 02SAT 98% 8L OXYMIZER. NO ACUTE RESPIRATORY DISTRESS NOTED. NO S/S O FPAIN. COLOSTOMY TO LLQ. G TUBE@ 45ML/HR. AIRMATTRESS IN PLCAED. ERYTHEMA TO BUTTOCKS WITH OPTIFOAM TO SACRUM.ECCHYMOSIS TO BUE. BED IN LOWEST POSITION,CALL LIGHT WITHIN REACH. WILL CONTINUE TO MONITOR.
--- NOTE | 2018-09-27 01:00 | NUR ---
TRIED TO LOWER OXYGEN TO 5 LITER,PT DESATTING TO 87-89%. PLACED IT BACK TO 8L OXYMIZER, 02SAT 94_95%. WILL CONTINUE TO MONITOR.
--- NOTE | 2018-09-27 03:15 | NUR ---
PT HAVING DISCOMFORT/PAIN. MEDICATED TYLENOL #3 OREDERED. WILL CONTINUE TO MONITOR.
--- NOTE | 2018-09-27 04:00 | NUR ---
PT ASLEEP. NO INDICATION OF PAIN AND DISCOMFORT.WILL CONTINUE TO MONITOR.
--- NOTE | 2018-09-27 05:13 | NUR ---
PT REMAINED ASLEEP.NO ACUTE DISTRESS NOTED.NO S/S OF PAIN AT THIS TIME. BED IN LOWEST POSITION,CALL LIGHT WITHIN REACH. WILL CONTINUE TO MONITOR.
--- NOTE | 2018-09-27 05:52 | NUR ---
DAUGHTER REFUSED TO GIVE INSULIN COVERAGE.
[2018-09-27 05:53] VITALS: BP 152/63
--- NOTE | 2018-09-27 07:08 | NUR ---
RECEIVED REPORT FROM ABDI MONTENEGRO. PT RESTING COMFORTABLY IN BED WITH DAUGHTER AT BEDSIDE. AIR MATTRESS IN PLACE. IV TO LFA IS PATENT AND INTACT. NO REDNESS OR PAIN. TELE # [address] NO INDICATION OF CHEST PAIN. PT ON O2 8L W/ OXIMIZER. NO DISTRESS NOTED. PEG TUBE IN PLACE INFUSING GLUCERNA @ 45 ML/HR WITH 100 ML H2O FLUSH Q3H. ALL NEEDS MET. ALL QUESTIONS AND CONCERNS ADDRESSED.
--- NOTE | 2018-09-27 07:26 | NUR ---
CARE ENDORSED TO DAY NURSE HARMONY.
--- NOTE | 2018-09-27 11:44 | NUR ---
RECEIVED CALL FROM CASE MANAGEMENT THAT PT IS TO TRANSPORT TO [facility] BETWEEN 13:30 AND 14:30. REPORT IS TO BE CALLED TO [phone]. PT TO GO TO ROOM 208-B. DR SIMMONS ACCEPTING.
--- NOTE | 2018-09-27 12:23 | NUR ---
SPOKE WITH DR ANGUIANO TO INFORM THAT [facility] HAS A BED FOR THE PATIENT. DR SIMMONS HAS ACCEPTED THE PATIENT. FACILITY TO ACCEPT PT ON 5L W/ OXIMIZER AND RT IS TITRATING THE PATIENT NOW. REQUESTED OK TO CHANGE DISCHARGE DATE TO TODAY IF SUCCESSFUL. DR ANGUIANO AGREED.
[2018-09-27 13:18] VITALS: BP 153/60
--- NOTE | 2018-09-27 13:23 | NUR ---
IN TO ASSESS PT AND ADMINSITER MEDICATION (SEE eMAR). PT RESTING IN BED C/O PAIN FROM COUGHING. PT O2 SATURATION ALSO CHECKED AND IS HOLDING @ 95% ON 5L W/ OXIMIZER.
[2018-09-27 13:37] VITALS: BP 153/60
--- NOTE | 2018-09-27 14:24 | NUR ---
REPORT CALLED TO BINA HENDERSON AND GIVEN TO SARAH MONTENEGRO. ALL QUESTIONS AND CONCERNS ADDRESSED. PT TO GO TO ROOM 208-B DR SIMMONS TO RECEIEVE. TRANSPORTATION IS HERE TO [facility] PATIENT. DAUGHTER NITA AT BEDSIDE HAS SIGNED THE CONSENT. PT TAKEN OFF THE FLOOR VIA [facility] BY [facility] WITH 5L OXIMIZER. ALL CARES ENDORSED.
== END 2018-09-27 14:40 | DRG 177 ==
LOC: ED 12:37 → DU 15:25 → MU 15:25 → IC 15:25 → EDBEDREQSVC 16:27 → MU 16:52 → DU 09-15 07:50 → IC 09-15 13:30 → DU 09-15 13:45 → IC 09-15 13:46 → DU 09-17 18:20
PROVIDERS: Emergency Medicine; Internal Medicine Gastroenterology; Internal Medicine Pulmonary Disease; ADMIT Internal Medicine Pulmonary Disease
PROC: 0DH63UZ Insertion of Feeding Device into Stomach, Percutaneous Approach (ICD-10-PCS; principal; 2018-09-20 10:30)
DX: J69.0 Pneumonitis due to inhalation of food and vomit (principal); J96.01 Acute respiratory failure with hypoxia; G93.41 Metabolic encephalopathy; J45.901 Unspecified asthma with (acute) exacerbation; E87.0 Hyperosmolality and hypernatremia; K29.80 Duodenitis without bleeding; K26.9 Duodenal ulcer, unspecified as acute or chronic, without hemorrhage or perforation; J44.9 Chronic obstructive pulmonary disease, unspecified; R54 Age-related physical debility; R13.10 Dysphagia, unspecified; Z74.01 Bed confinement status
CPT/HCPCS: 43235; 82962; 83880; 87804; 92526-GN; 92610; 97110-GP; 97530-GP; C9113; J0456; J0696; J1200; J1610; J1644; J1815; J1885; J1940; J2060; J2250; J2270; J2310; J2405; J2543; J2920; J3010; J3480; J3490; J7050; J7512; J7613; J7620; J7626; J7644; J8597; Q0092

== ENCOUNTER 2018-10-10 02:24 | Inpatient (IN) | payer OTHER ==
[~2018-10-10] VITALS: Ht 147.3 cm; Wt 41.7 kg
[~2018-10-10 02:24] MED LIST changes: +AMERINET CHOICE1 PD3 IV
[2018-10-10 03:27] LABS: BASOPHIL % 0.2 % (0-2)
[2018-10-10 03:30] LABS: RED CELL DISTRIBUTION WIDTH 19.3 % (11.5-14.5)
[2018-10-10 03:31] LABS: PLATELET COUNT 546 x10^3mcL (130-400)
[2018-10-10 03:38] LABS: CALCIUM 9.6 mg/dL (8.5-10.1); CARBON DIOXIDE 28.1 mmol/L (21-32); CHLORIDE SERUM 102 mmol/L (98-107); CREATININE SERUM 0.7 mg/dL (0.6-1.0); GLUCOSE SERUM 153 mg/dL (74-106); POTASSIUM SERUM 3.8 mmol/L (3.5-5.1); SODIUM SERUM 137 mmol/L (136-145)
[2018-10-10 03:39] LABS: microscopic required? YES; urine erythrocyte TRACE (NEGATIVE)
[2018-10-10 03:41] LABS: ALKALINE PHOSPHATASE 103 U/L (46-116); ALT/SGPT 28 U/L (14-59); AST/SGOT 23 U/L (15-37); BILIRUBIN TOTAL 0.22 mg/dL (0.20-1.00); TOTAL PROTEIN, SERUM 7.4 g/dL (6.4-8.2)
[2018-10-10 03:43] LABS: ALBUMIN 2.6 g/dL (3.4-5.0)
[2018-10-10 04:00] LABS: CK-MB 0.8 ng/mL (0-3.6)
[2018-10-10] MEDS ORDERED: LANTUS SOLOS100 U/M1 SQ (04:35)
[2018-10-10 09:04] VITALS: BP 168/70
[2018-10-10 11:23] VITALS: BP 168/70
[2018-10-10] MEDS ORDERED: ADVAIR DISKUS 51 AER INH (11:39)
[2018-10-10] MEDS ORDERED: ASPIRIN325 MG PO (11:39)
[2018-10-10] MEDS ORDERED: CALCIUM500 M1 PO (11:40)
[2018-10-10] MEDS ORDERED: VITAMIN-D1000 IU PO (11:40)
[2018-10-10] MEDS ORDERED: GABAPENTIN100 M2 PO (11:40)
[2018-10-10] MEDS ORDERED: MONTELUKAST SOD10 M1 PO (11:40)
[2018-10-10] MEDS ORDERED: PANTOPRAZOLE SO40 M1 PO (11:40)
[2018-10-10] MEDS ORDERED: NORCO1 TA2 PO (11:40)
[2018-10-10] MEDS ORDERED: ZOCOR20 MG PO (11:40)
[2018-10-10 13:02] VITALS: BP 135/59
[2018-10-10 17:11] VITALS: BP 163/60
[2018-10-10 20:58] VITALS: BP 164/60
[2018-10-11 05:24] VITALS: BP 178/84
[2018-10-11 06:22] LABS: ALKALINE PHOSPHATASE 94 U/L (46-116); ALT/SGPT 26 U/L (14-59); AST/SGOT 28 U/L (15-37); CALCIUM 9.2 mg/dL (8.5-10.1); CARBON DIOXIDE 28.5 mmol/L (21-32); CHLORIDE SERUM 103 mmol/L (98-107); CREATININE SERUM 0.6 mg/dL (0.6-1.0); GLUCOSE SERUM 104 mg/dL (74-106); POTASSIUM SERUM 3.8 mmol/L (3.5-5.1); SODIUM SERUM 135 mmol/L (136-145); TOTAL PROTEIN, SERUM 6.4 g/dL (6.4-8.2)
[2018-10-11 06:32] LABS: BASOPHIL % 1.2 % (0-2)
[2018-10-11 06:36] LABS: ALBUMIN 2.2 g/dL (3.4-5.0)
[2018-10-11 06:38] LABS: PLATELET COUNT 491 x10^3mcL (130-400); RED CELL DISTRIBUTION WIDTH 19.1 % (11.5-14.5)
[2018-10-11 08:31] VITALS: BP 181/69
[2018-10-11 11:45] VITALS: BP 156/69
[2018-10-11] MEDS ORDERED: CEFTRIAXONE AMER1 GM IJ (13:41)
[2018-10-11 16:19] VITALS: BP 151/76
[2018-10-11 16:46] VITALS: BP 151/76
[2018-10-11 21:05] VITALS: BP 164/80
[2018-10-12 05:33] VITALS: BP 156/69
[2018-10-12 06:22] LABS: BASOPHIL % 0.5 % (0-2)
[2018-10-12 06:23] LABS: PLATELET COUNT 438 x10^3mcL (130-400); RED CELL DISTRIBUTION WIDTH 18.6 % (11.5-14.5)
[2018-10-12 06:37] LABS: CALCIUM 9.4 mg/dL (8.5-10.1); CHLORIDE SERUM 101 mmol/L (98-107); CREATININE SERUM 0.6 mg/dL (0.6-1.0); GLUCOSE SERUM 105 mg/dL (74-106); MAGNESIUM 1.9 mg/dL (1.8-2.4); POTASSIUM SERUM 3.9 mmol/L (3.5-5.1); SODIUM SERUM 137 mmol/L (136-145)
[2018-10-12 09:29] VITALS: BP 116/55
[2018-10-12 13:12] VITALS: BP 112/52
[2018-10-12 17:32] VITALS: BP 115/54
[2018-10-12 20:48] VITALS: BP 139/56
[2018-10-13 05:41] VITALS: BP 123/62
[2018-10-13 06:25] VITALS: Ht 147.3 cm; Wt 41.7 kg
[2018-10-13 09:27] VITALS: BP 140/69
[2018-10-13 13:14] VITALS: BP 116/56
[2018-10-13 16:17] VITALS: BP 125/57
[2018-10-13 20:37] VITALS: BP 127/56
[2018-10-14 05:52] VITALS: BP 149/70
[2018-10-14 06:32] LABS: BASOPHIL % 0.4 % (0-2); PLATELET COUNT 346 x10^3mcL (130-400)
[2018-10-14 06:33] LABS: RED CELL DISTRIBUTION WIDTH 19.4 % (11.5-14.5)
[2018-10-14 07:15] LABS: CALCIUM 9.3 mg/dL (8.5-10.1); CARBON DIOXIDE 30.7 mmol/L (21-32); CHLORIDE SERUM 101 mmol/L (98-107); CREATININE SERUM 0.7 mg/dL (0.6-1.0); GLUCOSE SERUM 129 mg/dL (74-106); POTASSIUM SERUM 4.3 mmol/L (3.5-5.1); SODIUM SERUM 137 mmol/L (136-145)
[2018-10-14 08:36] VITALS: BP 102/63
[2018-10-14 13:07] VITALS: BP 117/62
[2018-10-14 15:58] VITALS: BP 131/58
[2018-10-14 20:40] VITALS: BP 143/57
[2018-10-15 05:24] VITALS: BP 128/65
[2018-10-15 09:05] VITALS: BP 128/65
[2018-10-15 09:21] VITALS: BP 128/64
[2018-10-15 16:21] VITALS: BP 119/60
[2018-10-15 21:10] VITALS: BP 119/58
[2018-10-16 05:43] VITALS: BP 108/64
[2018-10-16 06:22] LABS: BASOPHIL % 0.7 % (0-2); PLATELET COUNT 282 x10^3mcL (130-400)
[2018-10-16 07:35] LABS: ALBUMIN 2.2 g/dL (3.4-5.0); ALKALINE PHOSPHATASE 95 U/L (46-116); ALT/SGPT 19 U/L (14-59); AST/SGOT 14 U/L (15-37); BILIRUBIN TOTAL 0.15 mg/dL (0.20-1.00); CALCIUM 9.4 mg/dL (8.5-10.1); CARBON DIOXIDE 26.8 mmol/L (21-32); CHLORIDE SERUM 101 mmol/L (98-107); CREATININE SERUM 0.6 mg/dL (0.6-1.0); GLUCOSE SERUM 121 mg/dL (74-106); MAGNESIUM 1.9 mg/dL (1.8-2.4); POTASSIUM SERUM 4.5 mmol/L (3.5-5.1); SODIUM SERUM 137 mmol/L (136-145); TOTAL PROTEIN, SERUM 6.7 g/dL (6.4-8.2)
[2018-10-16 09:27] VITALS: BP 116/56
[2018-10-16 13:02] VITALS: BP 138/70
[2018-10-16 14:47] VITALS: BP 138/70
== END 2018-10-16 20:28 | disposition home or self-care (01) | DRG 689 ==
LOC: ED 02:24 → DU 06:10
PROVIDERS: Emergency Medicine; Internal Medicine Pulmonary Disease; ADMIT Internal Medicine Pulmonary Disease
DX: N39.0 Urinary tract infection, site not specified (principal); J96.01 Acute respiratory failure with hypoxia; Z68.1 Body mass index [BMI] 19.9 or less, adult; J98.11 Atelectasis; R54 Age-related physical debility; E86.9 Volume depletion, unspecified; I10 Essential (primary) hypertension; R13.10 Dysphagia, unspecified; R73.03 Prediabetes; Z93.1 Gastrostomy status; Z93.3 Colostomy status; Z86.718 Personal history of other venous thrombosis and embolism
CPT/HCPCS: 36600; 82962; 92526-GN; 92610; J0360; J0696; J2060; J7030; J7620; J7626; Q0092